=== PATIENT | male | born 1940 | race Caucasian/White ===

== ENCOUNTER 2018-02-02 10:00 | Emergency (ER) | payer OTHER, SELFPAY ==
[2018-02-02] VITALS (7 sets, daily range): BP systolic 95–116; BP diastolic 58–79; PULSE 52–67; RESP 12–20; TEMP 36.7; O2SAT 93–99; BMI 25.9
--- NOTE | 2018-02-02 10:19 | DI.RAD.S_ITS ---
PROCEDURE: XR CHEST 1V INDICATIONS: chest pain TECHNIQUE: One view of the chest was acquired. COMPARISON: [facility], , CHEST 1 VIEW, 09/13/2015, 14:41. FINDINGS: Surgical changes and devices: Multiple surgical clips are present over the mediastinum. Lungs and pleura: No pleural effusions or pneumothorax. Lungs are clear. Mediastinum: Mediastinal contours appear normal. Heart size is normal. Bones and chest wall: No suspicious bony lesions. Overlying soft tissues appear unremarkable. IMPRESSION: No acute cardiopulmonary findings. Dictated by: Renée Macario M.D. on 02/02/2018 at 11:02 Approved by: Renée Macario M.D. on 02/02/2018 at 11:03
[2018-02-02 10:36] LABS: Add Manual Diff / Slide Review NO; Basophils Percent Auto 0.9 % (0-2); Eosinophils Percent Auto 0.6 % (2-4); Hematocrit 47.6 % (41-53); Hemoglobin 16.3 g/dL (13.5-17.5); Lymphocytes Percent Auto 18.3 % (25-40); Mean Corpuscular HGB Conc 34.3 % (30-36); Mean Corpuscular Hemoglobin 29.3 PG (26-34); Mean Corpuscular Volume 85.3 fL (80-100); Monocytes Percent Auto 10.3 % (3-14); Neutrophils Absolute Auto 4600 /uL (3000-5900); Neutrophils Percent Auto 69.9 % (50-75); Platelet Count 202 X10^3/uL (150-400); Red Blood Cell Count 5.58 X10^6/uL (4.5-5.9); Red Cell Distribution Width 13.3 % (11.6-14.8); White Blood Cell Count 6.5 X10^3/uL (4.5-11.0)
--- NOTE | 2018-02-02 10:54 | PC.NURSE ---
lab at bedside to re-collect hemolized blood
[2018-02-02 11:10] LABS: INR 1.2 (0.9-1.3); Prothrombin Time 12.6 SECONDS (10.1-12.7)
[2018-02-02 11:13] LABS: PTT Partial Thromboplastin Tim 34 SECONDS (26.4-36.2)
[2018-02-02 11:18] LABS: Alanine Aminotransferase 47 IU/L (21-72); Albumin 4.4 g/dL (3.5-5.0); Albumin Globulin Ratio 1.5 (1.0-2.8); Alkaline Phosphatase 63 U/L (38-126); Aspartate Aminotransferase 32 IU/L (17-59); BUN Creatinine Ratio 26.7 (6-22); Bilirubin Total 0.6 mg/dL (0.2-1.3); Blood Urea Nitrogen 24 mg/dL (9-20); Carbon Dioxide 30 mmol/L (22-32); Chloride 101 mmol/L (98-107); Creatine Kinase 182 U/L (55-170); Estimated Glomerular Filt Rate > 60.0 mL/min (>60); Globulin 2.9 g/dL (1.7-4.1); Glucose 111 mg/dL (80-110); HEMOLYSIS < 15 (0-50); Lipase 66 U/L (23-300); Potassium 4.3 mmol/L (3.4-5.1); Sodium 141 mmol/L (137-145); Total Protein 7.3 g/dL (6.3-8.2)
[2018-02-02 11:33] LABS: CKMB % Relative Index 1.5 % (1.5-5.0); Creatine Kinase MB 2.78 ng/mL (<2.37)
[2018-02-02 11:38] LABS: Troponin I < 0.012 ng/mL (0.01-0.034)
--- NOTE | 2018-02-02 11:53 | ED_ITS ---
HPI - Chest Pain General Chief Complaint: Chest Pain Stated Complaint: CHEST PAIN/DIFFICULTY BREATHING Time Seen by Provider: 02/02/18 11:01 Source: patient and family Mode of arrival: ambulatory Limitations: no limitations History of Present Illness HPI narrative: Patient complains of bilateral chest pain since having 2 stents placed 3 weeks ago. Patient states this began the day after his angioplasty; he had both a chest x-ray and a postoperative echocardiogram while in the hospital to address this pain, and was kept in the hospital an extra day. Pain was not felt to be related to the patient's heart, and he was discharged. Patient has been having and the pain every day since; he states it is not affected by nitroglycerin which he does take. He saw his spreader operator, Dr. Moise, yesterday and spreader operator did not feel that the pain was cardiac in nature. Patient was instructed to follow up with his primary care physician to further address pain; however the primary care physician's office told him to come to the emergency department. MD complaint: chest pain Onset (ago): week(s) Duration: intermittent Onset: during rest Pain location: substernal Severity: mild Severity scale (1-10): 3 Quality: sharp Pain radiation: none Relieving factors: nothing Exacerbating factors: nothing Context: other (See above) Associated symptoms: other (No nausea, vomiting, diaphoresis, dyspnea, sense of impending doom, syncope, palpitations, fever, cough, or leg swelling.) Treatments prior to arrival chest pain: nitroglycerin (Patient states that this did not affect his pain.) Related Data Home Medications Medication Instructions Recorded Confirmed aspirin 1 tab PO QPM #0 12/24/15 02/07/18 rosuvastatin [Crestor] 40 mg PO QPM #30 tab 12/24/15 02/07/18 ezetimibe 10 mg PO QPM 02/02/18 02/07/18 furosemide 40 mg PO DAILY PRN 02/02/18 02/07/18 metoprolol succinate 25 mg PO BID 02/02/18 02/07/18 nitroglycerin [Nitrostat] 0.4 mg SUBLINGUAL Q5-15M PRN 02/02/18 02/07/18 potassium chloride 20 meq PO DAILY PRN 02/02/18 02/07/18 ticagrelor [Brilinta] 90 mg PO BID 02/02/18 02/07/18 Previous Rx's Medication Instructions Recorded hydroxyzine HCl 25 mg tablet 50 mg PO TID PRN #150 tab 02/07/18 Allergies Allergy/AdvReac Type Severity Reaction Status Date / Time amlodipine Allergy Intermediate Swelling Verified 02/07/18 09:23 of Lip/Tongue/Throat isosorbide Allergy Intermediate Swelling Verified 02/07/18 09:23 of Lip/Tongue/Throat ranolazine Allergy Intermediate Swelling Verified 02/07/18 09:23 of Lip/Tongue/Throat Review of Systems Review of Systems All systems reviewed & are unremarkable except as noted in HPI and below Constitutional Denies chills, Denies fever(s), Denies lethargy and Denies weakness Eyes Denies change in vision, Denies eye discharge, Denies irritation and Denies loss of vision ENT Ears, Nose, Mouth, and Throat: Denies change in voice, Denies neck pain and Denies sore throat Cardiovascular Reports chest pain, Denies irregular heart rhythm, Denies lightheadedness, Denies palpitations, Denies dyspnea, Denies dyspnea on exertion and Denies orthopnea Respiratory Denies cough, Denies dyspnea, Denies dyspnea on exertion and Denies wheezing Gastrointestinal Gastrointestinal: Denies abdominal pain, Denies change in bowel habits, Denies diarrhea, Denies nausea and Denies vomiting Genitourinary Denies hematuria, Denies flank pain, Denies urinary incontinence and Denies urinary urgency Musculoskeletal Denies neck pain Integumentary/Breasts Denies pruritus, Denies erythema, Denies rash and Denies wounds Neurologic Denies confusion, Denies loss of vision and Denies weakness Psychiatric Denies anxiety, Denies confusion, Denies depression, Denies homicidal ideation and Denies suicidal ideation Endocrine Denies palpitations Hematologic/Lymphatic Denies easy bruising Allergic/Immunologic Denies wheezing PFSH Medical History HTN (hypertension) (Acute) Coronary artery disease (Acute) Surgical History H/O coronary angioplasty (Acute) Family History Brother Age: 80 Lung disease Grandfather Heart disease Grandmother Heart disease Mother Heart disease Social History Smoking Status: Never smoker Exam Initial Vital Signs Initial Vital Signs: Vital Signs Pulse Rate 66 02/02/18 10:00 Respiratory Rate 17 02/02/18 10:00 Blood Pressure 116/78 02/02/18 10:00 Pulse Oximetry 95 02/02/18 10:00 Const General: cooperative and well developed Nutritional Appearance: well nourished Orientation: alert, awake, oriented x3 and not confused HENNE Head: normocephalic and atraumatic Ears: external ears normal Nose: external nose normal and No nasal discharge Face and sinus: face symmetric and No dry mucous membranes Mouth: oral mucosae normal and moist mucous membranes Teeth and gingiva: dentition normal Eyes General: appearance normal, both eyes and all related structures Eyelids: eyelids normal Conjunctivae: conjunctivae normal Sclera: sclerae normal Pupils: PERRL EOM: EOM intact bilaterally Neck Neck: normal visual inspection, trachea midline, No lymphadenopathy, No midline deformity and No JVD Lymphatic: No lymphedema Chest Chest: normal inspection of the chest Resp Effort & Inspection: normal respiratory effort, able to speak in complete sentences, no respiratory distress and no use of accessory muscles Auscultation: clear to auscultation bilaterally, no rales, no rhonchi and no wheezes Cardio Rate: regular rate Rhythm: regular rhythm Heart Sounds: no click, no gallops, no murmurs and no rubs Pulses: normal peripheral pulses GI Inspection: non-distended Palpation: soft, no hepatosplenomegaly, No guarding, No pulsatile mass and No tender Auscultation: normal bowel sounds Back/Spine/Pelvis Back: No CVA tenderness Cervical Spine: cervical ROM normal and No pain with cervical ROM Thoracic/Lumbar Spine: thoracic and lumbar spine normal to inspection Skin General: no rashes or lesions noted, No jaundice and No petechiae Neuro General: alert, oriented x3, gait normal and no focal motor deficits Speech: speech normal Extrem General: full ROM, no clubbing, cyanosis or edema, no pedal edema and no calf tenderness Psych Appearance: well kempt Mental Status: mental status grossly normal Attitude: cooperative Thought Content: normal and suicidality Judgment: judgment good Course Course Narrative: Patient was well appearing in the emergency department, and had been having this pain consistently since his angioplasty weeks ago. Additionally, he had on undergone extensive testing in the hospital, as well as followed up with his spreader operator and no further cardiac issues had turned up. I did discuss this at length with the patient and his but the patient's concern over his chest pain persisted. EKG and lab studies were unremarkable. I discussed with the patient and his that there is no evidence of an emergent cause of his chest pain. He needs to follow up with his primary care physician and spreader operator for further concerns at this point. We have discussed home management of the symptoms, as well as the usual indications for return. Orders Ordered: ED Orders 02/02/18 10:19 XR chest 1V Stat EKG-12 Lead Stat 02/02/18 10:23 Complete Blood Count AUTO DIFF Stat 02/02/18 10:55 Comprehensive Metabolic Panel Stat Lipase Stat Partial Thromboplastin Time Stat Prothrombin Time INR Stat Troponin & CK Cardiac Panel Stat Vital Signs - 8 hr 02/02/18 10:00 02/02/18 10:26 02/02/18 10:30 Temperature 98.1 F Pulse Rate 66 62 64 Respiratory Rate 17 14 18 Blood Pressure 116/79 Blood Pressure [Left Arm] 116/78 95/66 Blood Pressure [Right Arm] Pulse Oximetry 95 98 93 02/02/18 11:00 02/02/18 11:30 02/02/18 12:30 Temperature Pulse Rate 64 61 52 L Respiratory Rate 18 20 12 Blood Pressure Blood Pressure [Left Arm] 98/66 98/58 L Blood Pressure [Right Arm] 98/58 L 104/68 Pulse Oximetry 93 96 94 02/02/18 13:53 Temperature Pulse Rate 55 L Respiratory Rate 14 Blood Pressure Blood Pressure [Left Arm] Blood Pressure [Right Arm] 96/61 Pulse Oximetry 99 MDM - Chest Pain Medical Records Data Attestation: I reviewed the patient's medical records. Lab Data Attestation: I reviewed the patient's lab results. Result diagrams: 02/02/18 10:23 02/02/18 10:55 Lab Results 02/02/18 02/02/18 02/02/18 Range/Units 10:23 10:55 10:55 WBC 6.5 (4.5-11.0) X10^3/uL RBC 5.58 (4.5-5.9) X10^6/uL Hgb 16.3 (13.5-17.5) g/dL Hct 47.6 (41-53) % MCV 85.3 (80-100) fL MCH 29.3 (26-34) PG MCHC 34.3 (30-36) % RDW 13.3 (11.6-14.8) % Plt Count 202 (150-400) X10^3/uL Neut % (Auto) 69.9 (50-75) % Lymph % (Auto) 18.3 L (25-40) % [place] % (Auto) 10.3 (3-14) % Eos % (Auto) 0.6 L (2-4) % Baso % (Auto) 0.9 (0-2) % Neut # (Auto) 4600 (5767-8430) /uL PT 12.6 (10.1-12.7) SECONDS INR 1.2 (0.9-1.3) APTT 34 (26.4-36.2) SECONDS Sodium 141 (137-145) mmol/L Potassium 4.3 (3.4-5.1) mmol/L Chloride 101 (98-107) mmol/L Carbon Dioxide 30 (22-32) mmol/L BUN 24 H (9-20) mg/dL Creatinine 0.90 (0.66-1.25) mg/dL Estimated GFR > 60.0 (>60) mL/min BUN/Creatinine Ratio 26.7 H (6-22) Glucose 111 H (80-110) mg/dL Calcium 9.0 (8.4-10.2) mg/dL Total Bilirubin 0.6 (0.2-1.3) mg/dL AST 32 (17-59) IU/L ALT 47 (21-72) IU/L Alkaline Phosphatase 63 (38-126) U/L Total Creatine Kinase 182 H (55-170) U/L CK-MB (CK-2) 2.78 H (<2.37) ng/mL CK-MB (CK-2) Rel Index 1.5 (1.5-5.0) % Troponin I < 0.012 (0.01-0.034) ng/mL Total Protein 7.3 (6.3-8.2) g/dL Albumin 4.4 (3.5-5.0) g/dL Globulin 2.9 (1.7-4.1) g/dL Albumin/Globulin Ratio 1.5 (1.0-2.8) Lipase 66 (23-300) U/L Imaging Data Chest x-ray: Attestation: I personally reviewed and interpreted this imaging study as follows: My impression: Negative Radiologist's impression: PROCEDURE: XR CHEST 1V INDICATIONS: chest pain TECHNIQUE: One view of the chest was acquired. COMPARISON: [facility], CHEST 1 VIEW, 09/13/2015, 14:41. FINDINGS: Surgical changes and devices: Multiple surgical clips are present over the mediastinum. Lungs and pleura: No pleural effusions or pneumothorax. Lungs are clear. Mediastinum: Mediastinal contours appear normal. Heart size is normal. Bones and chest wall: No suspicious bony lesions. Overlying soft tissues appear unremarkable. IMPRESSION: No acute cardiopulmonary findings. Dictated by: Renée Macario M.D. on 02/02/2018 at 11:02 Approved by: Renée Macario M.D. on 02/02/2018 at 11:03 Discharge Plan Departure Patient Disposition: Home Clinical Impression: Chest pain Discharge Date/Time: 02/02/18 13:55 Interventions: ED Discharge Assessment Last Done: 02/02/18 13:54 Instructions: DI for Chest Pain Activity Restrictions/Additional Instructions: Your labs, chest x-ray, and EKG look good. There is no evidence of an emergent cause of her chest pain. Please continue to follow up with her primary care physician, as well as your spreader operator, for further evaluation of your pain. Prescriptions: No Action hydroxyzine HCl 25 mg tablet 50 mg PO TID PRN (Reason: anxiety) Qty: 150 RF: 0 aspirin 81 MG tablet,delayed release (DR/EC) 1 tab PO QPM Qty: 0 RF: 0 rosuvastatin [Crestor] 40 MG tablet 40 mg PO QPM Qty: 30 RF: 0 furosemide 40 mg Tablet 40 mg PO DAILY PRN (Reason: FLUID RETENTION) RF: 0 potassium chloride 10 mEq Tablet Extended Release 20 meq PO DAILY PRN (Reason: ONLY TAKE WITH FUROSEMIDE) RF: 0 nitroglycerin [Nitrostat] 0.4 mg Tablet, Sublingual 0.4 mg SUBLINGUAL Q5-15M PRN (Reason: Chest Pain) RF: 0 metoprolol succinate 25 mg Tablet Extended Release 24 Hr 25 mg PO BID RF: 0 ezetimibe 10 mg Tablet 10 mg PO QPM RF: 0 ticagrelor [Brilinta] 90 mg tablet 90 mg PO BID RF: 0 Referrals: Jonah Rasmussen MD [Primary Care Provider] - ( Call for the next available appointment.)
--- NOTE | 2018-02-02 13:17 | PC.NURSE ---
see note for initial assessment
== END 2018-02-02 13:55 | disposition home or self-care (01) ==
PROVIDERS: Emergency Provider Emergency Medicine; Family Provider Family Medicine; PCP Family Medicine
DX: R07.89 Other chest pain (principal)
CPT/HCPCS: 36415; 36591; 71045; 80053; 82550; 82553; 83690; 84484; 85025; 85610; 85730; 93005; 99283; 99285

== ENCOUNTER → 2018-03-02 07:29 | Outpatient (CLI) | payer OTHER, SELFPAY ==
[2018-03-02 09:40] LABS: Alanine Aminotransferase 76 IU/L (21-72); Albumin 4.5 g/dL (3.5-5.0); Albumin Globulin Ratio 1.7 (1.0-2.8); Alkaline Phosphatase 60 U/L (38-126); Aspartate Aminotransferase 48 IU/L (17-59); BUN Creatinine Ratio 21.1 (6-22); Bilirubin Total 0.5 mg/dL (0.2-1.3); Blood Urea Nitrogen 19 mg/dL (9-20); Calcium 9.4 mg/dL (8.4-10.2); Carbon Dioxide 29 mmol/L (22-32); Chloride 103 mmol/L (98-107); Estimated Glomerular Filt Rate > 60.0 mL/min (>60); Globulin 2.6 g/dL (1.7-4.1); Glucose 102 mg/dL (80-110); HEMOLYSIS < 15 (0-50); Potassium 4.7 mmol/L (3.4-5.1); Sodium 146 mmol/L (137-145); Total Protein 7.1 g/dL (6.3-8.2)
[2018-03-04 13:32] LABS: Lipoprofile NMR SEE SEPERATE REPORT
== END ==
PROVIDERS: Family Provider Student in an Organized Health Care Education/Training Program; PCP Student in an Organized Health Care Education/Training Program; Visit Provider Specialist
DX: E78.2 Mixed hyperlipidemia (principal)
CPT/HCPCS: 36415; 80053; 83704

== ENCOUNTER 2018-05-19 08:30 | Outpatient (RCR) | payer OTHER, SELFPAY | END 2018-05-19 10:00 | LOC: CAR 08:30 | PROVIDERS: Family Provider Student in an Organized Health Care Education/Training Program; PCP Student in an Organized Health Care Education/Training Program; Visit Provider Nurse Practitioner Gerontology | DX: Z95.5 Presence of coronary angioplasty implant and graft (principal); I25.110 Atherosclerotic heart disease of native coronary artery with unstable angina pectoris | CPT/HCPCS: 93798 ==

== ENCOUNTER 2018-05-26 13:30 | Emergency (ER) | payer OTHER, SELFPAY ==
[2018-05-26 13:35] VITALS: BP 119/64; PULSE 76; RESP 18; TEMP 36.7; O2SAT 95
--- NOTE | 2018-05-26 13:43 | ED.CHESTPAIN ---
HPI - Chest Pain General Chief Complaint: Chest Pain Stated Complaint: throat pain extending down abdomen Time Seen by Provider: 05/26/18 13:42 Source: patient Mode of arrival: ambulatory Limitations: no limitations History of Present Illness HPI narrative: Patient is a 78-year-old male here for evaluation of chest pain. He states that at the end of last month he had a cardiac catheterization with stents placed. He does have known coronary artery disease. He is on medications. He has been taking his medications. He states that since then he has had occasional pain. He states that it is in the morning. He thinks that it radiates from his throat down to his abdomen. Starts after he wakes up. Resolves by mid day and then is gone the rest of the day. He has taken nitro in the past for this which has improved some of his symptoms. He was started on pantoprazole 3 days ago by his primary doctor. He came into the emergency department today looking to have his esophagus evaluated with radiologic studies. He has a nephew who is a radiologist who recommended that this get done. Related Data Home Medications Medication Instructions Recorded Confirmed aspirin 1 tab PO QPM #0 12/24/15 05/26/18 rosuvastatin [Crestor] 40 mg PO QPM #30 tab 12/24/15 05/26/18 ezetimibe 10 mg PO QPM 02/02/18 05/26/18 nitroglycerin [Nitrostat] 0.4 mg SUBLINGUAL Q5-15M PRN 02/02/18 05/26/18 clopidogrel 75 mg PO DAILY 05/26/18 05/26/18 hydrochlorothiazide 12.5 mg PO DAILY 05/26/18 05/26/18 isosorbide dinitrate 10 mg PO TID 05/26/18 05/26/18 metoprolol succinate 25 mg PO QPM 05/26/18 05/26/18 Previous Rx's Medication Instructions Recorded pantoprazole 40 mg tablet,delayed 40 mg PO DAILY #14 tab 05/24/18 release Allergies Allergy/AdvReac Type Severity Reaction Status Date / Time amlodipine Allergy Intermediate Swelling Verified 02/07/18 09:23 of Lip/Tongue/Throat isosorbide Allergy Intermediate Swelling Verified 02/07/18 09:23 of Lip/Tongue/Throat ranolazine Allergy Intermediate Swelling Verified 02/07/18 09:23 of Lip/Tongue/Throat Review of Systems Constitutional Denies fever(s) and Denies headache(s) ENT Ears, Nose, Mouth, and Throat: Denies headache(s) Cardiovascular Reports chest pain and Denies dyspnea Respiratory Denies cough and Denies dyspnea Gastrointestinal Gastrointestinal: Denies abdominal pain, Denies nausea and Denies vomiting Genitourinary Denies dysuria Musculoskeletal Denies myalgias and Denies arthralgias Integumentary/Breasts Denies lesions and Denies rash Neurologic Denies confusion and Denies headache(s) Psychiatric Denies confusion Hematologic/Lymphatic Comments: Not on anticoagulation Allergic/Immunologic Denies urticaria [facility] Social History Smoking Status: Never smoker Exam Initial Vital Signs Initial Vital Signs: Vital Signs Temperature 98.1 F 05/26/18 13:35 Pulse Rate 76 05/26/18 13:35 Respiratory Rate 18 05/26/18 13:35 Blood Pressure 119/64 05/26/18 13:35 Pulse Oximetry 95 05/26/18 13:35 Const General: cooperative, healthy appearing, comfortable, well developed, well groomed and No acute distress Orientation: alert, awake and oriented x3 HENMT Head: normal to inspection and normocephalic Chest Chest: normal inspection of the chest Resp Effort & Inspection: normal respiratory effort Auscultation: clear to auscultation bilaterally Cardio Rate: regular rate Rhythm: regular rhythm Pulses: radial pulses present GI Inspection: non-distended Palpation: soft, No firm and No tender Skin Lesions: no lesions Rashes: no rashes Neuro General: alert, awake and oriented x3 Extrem General: normal to inspection and No edema Psych Appearance: grossly normal and well kempt Course Orders Ordered: ED Orders 05/26/18 13:44 XR chest 1V Stat EKG-12 Lead Stat Vital Signs - 8 hr 05/26/18 13:35 05/26/18 14:23 05/26/18 14:24 Temperature 98.1 F Pulse Rate 76 65 Respiratory Rate 18 20 Blood Pressure 119/64 Blood Pressure [Left Arm] 103/53 L Pulse Oximetry 95 93 05/26/18 15:00 05/26/18 16:37 05/26/18 17:40 Temperature Pulse Rate 54 L 79 61 Respiratory Rate 18 18 18 Blood Pressure 130/65 Blood Pressure [Left Arm] 98/55 L 108/66 Pulse Oximetry 92 93 99 MDM - Chest Pain Medical Records Data Attestation: I reviewed the patient's medical records. Lab Data Attestation: I reviewed the patient's lab results. Result diagrams: 05/26/18 01:42 05/26/18 01:42 Lab Results 05/26/18 05/26/18 05/26/18 Range/Units 01:42 01:42 01:42 WBC 5.4 (4.5-11.0) X10^3/uL RBC 5.09 (4.5-5.9) X10^6/uL Hgb 14.8 (13.5-17.5) g/dL Hct 44.4 (41-53) % MCV 87.2 (80-100) fL MCH 29.0 (26-34) PG MCHC 33.3 (30-36) % RDW 13.7 (11.6-14.8) % Plt Count 153 (150-400) X10^3/uL Neut % (Auto) 64.2 (50-75) % Lymph % (Auto) 24.5 L (25-40) % [place] % (Auto) 9.7 (3-14) % Eos % (Auto) 0.7 L (2-4) % Baso % (Auto) 0.9 (0-2) % Neut # (Auto) 3500 (6415-9670) /uL Lymph # (Auto) 1300 (4341-5902) /uL [place] # (Auto) 500 (0-900) /uL Eos # (Auto) 0 (0-450) /uL Baso # (Auto) 0 (0-100) /uL PT 12.5 (10.1-12.7) SECONDS INR 1.1 (0.9-1.3) APTT 31 D (26.4-36.2) SECONDS Sodium 137 (137-145) mmol/L Potassium 3.9 (3.4-5.1) mmol/L Chloride 102 (98-107) mmol/L Carbon Dioxide 26 (22-32) mmol/L BUN 19 (9-20) mg/dL Creatinine 0.90 (0.66-1.25) mg/dL Estimated GFR > 60.0 (>60) mL/min BUN/Creatinine Ratio 21.1 (6-22) Glucose 113 H (80-110) mg/dL Calcium 9.0 (8.4-10.2) mg/dL Total Bilirubin 0.3 (0.2-1.3) mg/dL AST 29 (17-59) IU/L ALT 34 (21-72) IU/L Alkaline Phosphatase 55 (38-126) U/L Troponin I < 0.012 (0.01-0.034) ng/mL B-Natriuretic Peptide < 100 (<100) Total Protein 7.0 (6.3-8.2) g/dL Albumin 4.2 (3.5-5.0) g/dL Globulin 2.8 (1.7-4.1) g/dL Albumin/Globulin Ratio 1.5 (1.0-2.8) Lipase 74 (23-300) U/L Imaging Data Chest x-ray: Radiologist's impression: [address] [address] XRay Report Signed Patient: Paolo Bazzi WMR#: [id number] : 1Acct:[id number] Age/Sex: 78 / MDate of Service: 05/26/18 Loc: ED Accession Number: [id number] Procedure: XR chest 1V Ordering Provider: Jaime Ba D.O. PROCEDURE: XR CHEST 1V INDICATIONS: chest pain TECHNIQUE: One view of the chest was acquired. COMPARISON: [facility], , XR CHEST 1V, 02/02/2018, 10:42. [facility], , CHEST 1 VIEW, 09/13/2015, 14:41. FINDINGS: Surgical changes and devices: A sternotomy wires, probable prior CABG.. Lungs and pleura: No pleural effusions or pneumothorax. Lungs are clear. Mediastinum: Mediastinal contours appear normal. Heart size is normal. Bones and chest wall: No suspicious bony lesions. Overlying soft tissues appear unremarkable. IMPRESSION: Source of chest pain is not seen. Suspect prior CABG. Dictated by: Kartik Cabrales M.D. on 05/26/2018 at 14:14 Approved by: Kartik Cabrales M.D. on 05/26/2018 at 14:15 ECG Data Attestation: I personally reviewed and interpreted this ECG as follows: Prior ECG tracings: not available for review Interpretation: Sinus bradycardia Ventricular rate of 54 Normal axis Normal QRS Normal QTC No ST T wave changes MDM Narrative Medical decision making narrative: Patient's labs chest x-ray an EKG here in the emergency department are unremarkable. I informed the patient and his that we would be unable to get any esophageal studies performed out of the emergency department. Stated that this needed to come from either the primary care doctor or a GI provider. I did discuss the patient's case for all of her who was on-call for the patient's cardiology group of [facility]. Dr. Wood was able to review the patient's catheterization pictures from the end of last month. He does state that there were potentially some lesions that could be causing the patient angina however given his story that he presented to the emergency department and his unremarkable EKG and unremarkable labs and the fact that his symptoms were occurring in the morning that he would not emergently re- catheterization the individual. He stated that staying on the PPI is warranted and also taking the nitro as needed. I discussed the case with Dr. Cuenca who is the patient's primary care doctor however has yet to see the patient in the clinic. I do feel like the patient would benefit from a GI referral however I do not feel like this is an emergent issue. Informed the patient he should stay on the pantoprazole. Also informed that he could take the nitroglycerin as needed. He was given return precautions. He expressed understanding and agreement with plan. Discharge Plan Departure Patient Disposition: Home Clinical Impression: Chest pain Discharge Date/Time: 05/26/18 17:39 Interventions: ED Discharge Assessment Last Done: 05/26/18 17:40 Instructions: DI for Chest Pain Activity Restrictions/Additional Instructions: I recommend you continue with the pantoprazole and also the nitro like we discussed. When you return home keep your appointment that you have scheduled with your primary doctor. If your symptoms worsen or change return to the emergency department for re-evaluation Prescriptions: No Action aspirin 81 MG tablet,delayed release (DR/EC) 1 tab PO QPM Qty: 0 RF: 0 rosuvastatin [Crestor] 40 MG tablet 40 mg PO QPM Qty: 30 RF: 0 pantoprazole 40 mg tablet,delayed release (DR/EC) 40 mg PO DAILY Qty: 14 RF: 0 nitroglycerin [Nitrostat] 0.4 mg Tablet, Sublingual 0.4 mg SUBLINGUAL Q5-15M PRN (Reason: Chest Pain) RF: 0 ezetimibe 10 mg Tablet 10 mg PO QPM RF: 0 isosorbide dinitrate 10 mg Tablet 10 mg PO TID RF: 0 clopidogrel 75 mg Tablet 75 mg PO DAILY RF: 0 hydrochlorothiazide 12.5 mg Capsule 12.5 mg PO DAILY RF: 0 metoprolol succinate 25 mg Tablet Extended Release 24 Hr 25 mg PO QPM RF: 0
[2018-05-26 14:23] VITALS: PULSE 65; RESP 20; O2SAT 93
[2018-05-26 14:24] VITALS: BP 103/53
[2018-05-26 14:33] LABS: Add Manual Diff / Slide Review NO; Basophils Absolute Auto 0 /uL (0-100); Basophils Percent Auto 0.9 % (0-2); Eosinophils Absolute Auto 0 /uL (0-450); Eosinophils Percent Auto 0.7 % (2-4); Hematocrit 44.4 % (41-53); Hemoglobin 14.8 g/dL (13.5-17.5); Lymphocytes Absolute Auto 1300 /uL (1100-4500); Lymphocytes Percent Auto 24.5 % (25-40); Mean Corpuscular HGB Conc 33.3 % (30-36); Mean Corpuscular Volume 87.2 fL (80-100); Monocytes Absolute Auto 500 /uL (0-900); Monocytes Percent Auto 9.7 % (3-14); Neutrophils Absolute Auto 3500 /uL (1500-7000); Neutrophils Percent Auto 64.2 % (50-75); Platelet Count 153 X10^3/uL (150-400); Red Blood Cell Count 5.09 X10^6/uL (4.5-5.9); Red Cell Distribution Width 13.7 % (11.6-14.8); White Blood Cell Count 5.4 X10^3/uL (4.5-11.0)
[2018-05-26 14:36] LABS: INR 1.1 (0.9-1.3); Prothrombin Time 12.5 SECONDS (10.1-12.7)
[2018-05-26 14:39] LABS: PTT Partial Thromboplastin Tim 31 SECONDS (26.4-36.2)
[2018-05-26 14:40] LABS: Alanine Aminotransferase 34 IU/L (21-72); Albumin 4.2 g/dL (3.5-5.0); Albumin Globulin Ratio 1.5 (1.0-2.8); Alkaline Phosphatase 55 U/L (38-126); Aspartate Aminotransferase 29 IU/L (17-59); BUN Creatinine Ratio 21.1 (6-22); Bilirubin Total 0.3 mg/dL (0.2-1.3); Blood Urea Nitrogen 19 mg/dL (9-20); Carbon Dioxide 26 mmol/L (22-32); Chloride 102 mmol/L (98-107); Estimated Glomerular Filt Rate > 60.0 mL/min (>60); Globulin 2.8 g/dL (1.7-4.1); Glucose 113 mg/dL (80-110); HEMOLYSIS < 15 (0-50); Lipase 74 U/L (23-300); Potassium 3.9 mmol/L (3.4-5.1); Sodium 137 mmol/L (137-145)
[2018-05-26 14:52] LABS: B Type Natriuretic Peptide < 100 (<100)
[2018-05-26 14:53] LABS: Troponin I < 0.012 ng/mL (0.01-0.034)
[2018-05-26 15:00] VITALS: BP 98/55; PULSE 54; RESP 18; O2SAT 92
[2018-05-26 16:37] VITALS: BP 108/66; PULSE 79; RESP 18; O2SAT 93
[2018-05-26 17:40] VITALS: BP 130/65; PULSE 61; RESP 18; O2SAT 99
== END 2018-05-26 17:39 | disposition home or self-care (01) ==
PROVIDERS: Emergency Provider Emergency Medicine; Family Provider Student in an Organized Health Care Education/Training Program; PCP Student in an Organized Health Care Education/Training Program
DX: R07.9 Chest pain, unspecified (principal)
CPT/HCPCS: 36591; 71045; 80053; 83690; 83880; 84484; 85025; 85610; 85730; 93005; 93010; 99283; 99285

== ENCOUNTER → 2018-08-23 10:42 | Outpatient (CLI) | payer OTHER, SELFPAY | PROVIDERS: Family Provider Student in an Organized Health Care Education/Training Program; PCP Student in an Organized Health Care Education/Training Program; Visit Provider Physician Assistant | DX: J02.9 Acute pharyngitis, unspecified (principal) | CPT/HCPCS: 87070 ==

== ENCOUNTER → 2018-10-21 16:58 | Outpatient (CLI) | payer OTHER, SELFPAY ==
--- NOTE | 2018-11-11 08:54 | PM.PFT.1 ---
Pulmonary Function Test Referral & Results Date Patient Seen: 10/21/18 Requesting provider: Andres Vargas Indication: Shortness of breath Results: The spirometry demonstrates an FVC of 3.23 L which is 81% of predicted. The FEV1 was measured at 2.31 L which is 81% of predicted. The FEV1/FVC ratio was 72 which is 99% of predicted. Following the administration of bronchodilator there was to 29% improvement in FEF 25-75%. Lung volumes show an SVC of 3.05 L which is 70% of predicted. The diffusing capacity was measured at 22.65 which is 73% of predicted. No hemoglobin value was provided, so no correction for potential anemia could be made, if appropriate. The maximum voluntary ventilation was normal Interpretation: This study demonstrates mild obstructive lung disease based on reduction in FEV1. There is some evidence of benefit following bronchodilator administration particularly small airway flow based on improvement in FEF 25-75% as above There is more significant reduction in lung volumes suggesting more significant restrictive lung disease There is also [id number] reduction in diffusing capacity suggesting disease of the capillary alveolar level Altogether, given more significant restrictive pattern than obstructive lung disease pattern and reduction in diffusing capacity this is consistent with an interstitial process Clinical correlation suggested
== END ==
PROVIDERS: Family Provider Student in an Organized Health Care Education/Training Program; PCP Student in an Organized Health Care Education/Training Program; Visit Provider Student in an Organized Health Care Education/Training Program
DX: R06.02 Shortness of breath (principal)
CPT/HCPCS: 94060; 94726; 94729

== ENCOUNTER → 2018-11-16 16:06 | Outpatient (CLI) | payer OTHER, SELFPAY ==
--- NOTE | 2018-11-16 16:07 | DI.CT.S_ITS ---
PROCEDURE: CT CHEST HIGH RESOLUTION INDICATIONS: Abnormal PFT, suspect interstitial disease TECHNIQUE: Noncontrast 1.0 and 5.0 mm thick contiguous axial sections from the pulmonary apex to the posterior costophrenic angles, with 7 mm thick coronal and sagittal MIP reformats. 1 mm thick dynamic expiratory images acquired through the upper, mid, and lower lungs. 1.0 mm thick axial sections acquired from the omari to the posterior costophrenic angles in the prone end-inspiration position. For radiation dose reduction, the following was used: automated exposure control, adjustment of mA and/or kV according to patient size. COMPARISON: None. FINDINGS: Image quality: Excellent. Lungs: The there is no air space opacity. No discrete pulmonary nodule or mass is seen. Scarring/atelectasis in anterior and lateral periphery of bilateral mid to lower lung russell are seen. Bibasilar dependent atelectasis/scarring is also noted. Central and peripheral airway is patent and are normal in caliber. Pleura: No pleural effusions or pneumothorax. Mediastinum: Heart size is normal. No pericardial effusion. Atherosclerotic calcifications throughout coronary vessels and thoracic aorta are seen. Thoracic aorta and central pulmonary arteries are normal in size. Esophagus is normal in caliber. There is a small hiatal hernia. Bones and chest wall: No suspicious bony lesions. No vertebral body compression fractures. Abdomen: Visualized upper abdominal solid organs and bowel loops appear normal. IMPRESSION: 1. Bilateral lower lung field scarring/atelectasis. No focal infiltrate, pleural effusion or pneumothorax. No evidence of interstitial lung frontal disease. 2. No mediastinal or hilar lymphadenopathy. Coronary artery atherosclerotic calcifications. No thoracic aortic aneurysm. 3. Small hiatal hernia. Dictated by: Emerson Sheppard M.D. on 11/16/2018 at 17:08 Approved by: Emerson Sheppard M.D. on 11/16/2018 at 17:13
== END ==
PROVIDERS: Family Provider Student in an Organized Health Care Education/Training Program; PCP Student in an Organized Health Care Education/Training Program; Visit Provider Student in an Organized Health Care Education/Training Program
DX: J84.9 Interstitial pulmonary disease, unspecified (principal); I25.10 Atherosclerotic heart disease of native coronary artery without angina pectoris; K44.9 Diaphragmatic hernia without obstruction or gangrene
CPT/HCPCS: 71250

== ENCOUNTER → 2019-10-23 10:02 | Outpatient (CLI) | payer MEDICARE, SELFPAY ==
[2019-10-24 08:52] LABS: COVID19 Sendout Not Detected (Not Detect)
== END ==
PROVIDERS: Family Provider Student in an Organized Health Care Education/Training Program; PCP Student in an Organized Health Care Education/Training Program; Visit Provider Nurse Practitioner
DX: Z01.812 Encounter for preprocedural laboratory examination (principal)
CPT/HCPCS: 87635

== ENCOUNTER → 2020-01-06 13:29 | Outpatient (CLI) | payer MEDICARE, SELFPAY ==
[2020-01-09 12:02] LABS: COVID19 Sendout Not Detected (Not Detect)
== END ==
PROVIDERS: Family Provider Student in an Organized Health Care Education/Training Program; PCP Student in an Organized Health Care Education/Training Program; Visit Provider Physician Assistant
DX: Z11.59 Encounter for screening for other viral diseases (principal)
CPT/HCPCS: 87635

== ENCOUNTER 2020-01-09 08:57 | Day surgery (SDC) | payer MEDICARE, SELFPAY ==
[2020-01-09 09:31] VITALS: BP 130/76; PULSE 53; RESP 16; TEMP 36.6; O2SAT 95; BMI 25.2
[2020-01-09] MEDS: CATARACT EYE COMPOUND (10 DROPS/SYRINGE) 3 DROPS EYE-OP (09:57)
[2020-01-09] MEDS: PROPARACAINE 0.5% OPHTH SOL 2 DROPS EYE-OP (09:57)
[2020-01-09 10:00] LABS: COVID19 -Nasal RAPID Negative (Negative)
--- NOTE | 2020-01-09 11:05 | PM.PREOP ---
Pre-operative Note Interval Note History & Physical reviewed/Exam performed by Physician: Yes Changes to H&P: No
--- NOTE | 2020-01-09 11:06 | PM.OP.1 ---
Operative Date/Time/Diagnoses Pre-op diagnosis: Nuclear cataract right eye Procedure & Clinicians Procedure: Cataract Surgery Same procedure as scheduled: Yes Surgeon: Francis Gupta Anesthesia Type: MAC +/- and Sedation Operative Notes Procedure in detail: Patient brought to the operating suite. Tetracaine drops placed in the right eye. Patient was prepped and draped in sterile manner. Wire lid speculum was placed in the eye. Betadine drops were placed on the eye. This was irrigated. Lidocaine jelly was placed on the eye. A paracentesis port was created with a side-port blade. 0.1 mL 1% preservative free lidocaine was injected into the anterior chamber. The anterior chamber was deepened with viscoelastic. 2.6 mm keratome was used to create a temporal clear corneal incision. Cystotome and Utrata forceps were used to create continuous tear capsulorrhexis. Balanced salt solution was used to hydro dissect the nucleus. The phacoemulsification handpiece was inserted and the nucleus was removed using the stop and chop technique. The irrigation aspiration handpiece was inserted and the remaining cortex was removed. Anterior chamber was deepened with viscoelastic. An Marcelo ZCB00 intraocular lens with a power of 22.0 was injected into the capsular bag. Irrigation aspiration handpiece was inserted and the remaining viscoelastic was removed. Incision was hydrated with balanced salt solution and found to be leak free with pressure with Weck-Amena sponges. 0.1 mL Vigamox injected anterior chamber. 0.3 mL Kenalog 10 mg was injected subconjunctivally. Lid speculum was removed. The patient left the operating room in excellent condition. Complications: none Post-operative Condition: stable Disposition: same day surgery
[2020-01-09] MEDS: CHONDROIDTIN/SOD HYALURONATE 1.05 ML SYRINGE INTRAOCULA (11:14)
[2020-01-09] MEDS: LIDOCAINE JELLY 2% 5 ML 1 APPLIC TOP (11:14)
[2020-01-09] MEDS: PHENYLEPHRINE/LIDOCAINE VIAL (OR) 0.2 ML EYE-OP (11:15)
[2020-01-09] MEDS: MOXIFLOXACIN INJ 5 MG/ML VIAL EYE-OP (11:15)
[2020-01-09] MEDS: BALANCED SALT IRRIG SOLN NO.2 500 ML, EPINEPHrine 1 MG IRR (11:15)
[2020-01-09] MEDS: TRIAMCINOLONE 50 MG/5 ML VIAL INJ (11:16)
[2020-01-09] MEDS: TETRACAINE 0.5% OPHTH DROPS 4 ML 2 DROPS EYE-OP (11:16)
== END 2020-01-09 11:35 | disposition home or self-care (01) ==
PROVIDERS: Family Provider Student in an Organized Health Care Education/Training Program; PCP Student in an Organized Health Care Education/Training Program; Referring Provider Ophthalmology; Visit Provider Ophthalmology
PROC: (CPT 66984; principal; 2020-01-09 10:45)
DX: H25.11 Age-related nuclear cataract, right eye (principal); Z11.59 Encounter for screening for other viral diseases; F41.9 Anxiety disorder, unspecified; I51.9 Heart disease, unspecified
CPT/HCPCS: 66984; 87635; J0171; J2250; J3301

== ENCOUNTER → 2020-01-20 08:11 | Outpatient (CLI) | payer MEDICARE, SELFPAY ==
[2020-01-21 15:48] LABS: COVID19 Sendout Not Detected (Not Detect)
== END ==
PROVIDERS: Family Provider Student in an Organized Health Care Education/Training Program; PCP Student in an Organized Health Care Education/Training Program; Visit Provider Physician Assistant
DX: Z11.59 Encounter for screening for other viral diseases (principal)
CPT/HCPCS: 87635

== ENCOUNTER 2020-01-23 08:01 | Day surgery (SDC) | payer MEDICARE, SELFPAY ==
[2020-01-23] MEDS: PROPARACAINE 0.5% OPHTH SOL 2 DROPS EYE-OP (08:45)
[2020-01-23 08:53] VITALS: BP 138/68; PULSE 50; RESP 16; TEMP 36.1; O2SAT 97; BMI 25.2
[2020-01-23] MEDS: CATARACT EYE COMPOUND (10 DROPS/SYRINGE) 3 DROPS EYE-OP (09:05)
--- NOTE | 2020-01-23 09:35 | P.OP_ITS ---
Operative Date/Time/Diagnoses Pre-op diagnosis: Nuclear Cataract Left eye Post-op diagnosis: same Procedure & Clinicians Same procedure as scheduled: Yes Surgeon: Francis Gupta Anesthesia Type: MAC +/- and Sedation Operative Notes Procedure in detail: Patient brought to the operating suite. Tetracaine drops placed in the left eye. Patient was prepped and draped in sterile manner. Wire lid speculum was placed in the eye. Betadine drops were placed on the eye. This was irrigated. Lidocaine jelly was placed on the eye. A paracentesis port was created with a side-port blade. 0.1 mL 1% preservative free lidocaine was injected into the anterior chamber. The anterior chamber was deepened with viscoelastic. 2.6 mm keratome was used to create a temporal clear corneal incision. Cystotome and Utrata forceps were used to create continuous tear capsulorrhexis. Balanced salt solution was used to hydro dissect the nucleus. The phacoemulsification handpiece was inserted and the nucleus was removed using the stop and chop technique. The irrigation aspiration handpiece was inserted and the remaining cortex was removed. Anterior chamber was deepened with viscoe lastic. An Marcelo ZCB00 intraocular lens with a power of 22.5 was injected into the capsular bag. Irrigation aspiration handpiece was inserted and the remaining viscoelastic was removed. Incision was hydrated with balanced salt solution and found to be leak free with pressure with Weck-Amena sponges. 0.1 mL Vigamox injected anterior chamber. 0.3 mL Kenalog 10 mg was injected subconjunctivally. Lid speculum was removed. The patient left the operating room in excellent condition. Complications: none Post-operative Condition: stable Disposition: same day surgery
--- NOTE | 2020-01-23 09:35 | PM.PREOP ---
Pre-operative Note Interval Note History & Physical reviewed/Exam performed by Physician: Yes Changes to H&P: No
[2020-01-23] MEDS: LIDOCAINE JELLY 2% 5 ML 1 APPLIC TOP (09:50)
[2020-01-23] MEDS: CHONDROIDTIN/SOD HYALURONATE 1.05 ML SYRINGE INTRAOCULA (09:50)
[2020-01-23] MEDS: PHENYLEPHRINE/LIDOCAINE VIAL (OR) 0.2 ML EYE-OP (09:51)
[2020-01-23] MEDS: MOXIFLOXACIN INJ 5 MG/ML VIAL EYE-OP (09:51)
[2020-01-23] MEDS: BALANCED SALT IRRIG SOLN NO.2 500 ML, EPINEPHrine 1 MG IRR (09:52)
[2020-01-23] MEDS: TRIAMCINOLONE 50 MG/5 ML VIAL INJ (09:52)
[2020-01-23] MEDS: TETRACAINE 0.5% OPHTH DROPS 4 ML 2 DROPS EYE-OP (09:52)
[2020-01-23 10:06] VITALS: BP 121/62; PULSE 55; RESP 16; TEMP 36.2; O2SAT 96
== END 2020-01-23 10:21 | disposition home or self-care (01) ==
PROVIDERS: Family Provider Student in an Organized Health Care Education/Training Program; PCP Student in an Organized Health Care Education/Training Program; Referring Provider Ophthalmology; Visit Provider Ophthalmology
PROC: (CPT 66984; principal; 2020-01-23 09:45)
DX: H25.12 Age-related nuclear cataract, left eye (principal); F41.9 Anxiety disorder, unspecified; K21.9 Gastro-esophageal reflux disease without esophagitis; I51.9 Heart disease, unspecified; G47.33 Obstructive sleep apnea (adult) (pediatric)
CPT/HCPCS: 66984; J0171; J2250; J3301

== ENCOUNTER → 2020-04-01 08:22 | Outpatient (CLI) | payer MEDICARE, SELFPAY ==
[2020-04-01 12:22] LABS: COVID19 -Nasal RAPID Negative (Negative)
== END ==
PROVIDERS: Physician Assistant; Family Provider Student in an Organized Health Care Education/Training Program; PCP Student in an Organized Health Care Education/Training Program; Visit Provider Family Medicine Sleep Medicine
DX: Z11.59 Encounter for screening for other viral diseases (principal)
CPT/HCPCS: 87635

== ENCOUNTER → 2020-04-30 15:09 | Outpatient (CLI) | payer MEDICARE, SELFPAY ==
[2020-04-30 16:34] LABS: BUN Creatinine Ratio 27.4 (6-22); Blood Urea Nitrogen 26 mg/dL (9-20); Calcium 9.2 mg/dL (8.4-10.2); Carbon Dioxide 32 mmol/L (22-32); Chloride 104 mmol/L (98-107); Estimated Glomerular Filt Rate > 60.0 mL/min (>60); Glucose 101 mg/dL (80-110); HEMOLYSIS < 15 (0-50); Potassium 4.5 mmol/L (3.4-5.1); Sodium 139 mmol/L (137-145)
== END ==
PROVIDERS: Family Provider Student in an Organized Health Care Education/Training Program; PCP Student in an Organized Health Care Education/Training Program; Referring Provider Internal Medicine Cardiovascular Disease; Visit Provider Internal Medicine Cardiovascular Disease
DX: R07.89 Other chest pain (principal)
CPT/HCPCS: 36415; 80048

== ENCOUNTER → 2020-05-01 15:38 | Outpatient (CLI) | payer MEDICARE, SELFPAY ==
--- NOTE | 2020-05-01 | DI.CT.S_ITS ---
PROCEDURE: CT ANGIO CHEST ABDOMEN PELVIS INDICATIONS: Atherosclerotic heart disease of [place] coronary TECHNIQUE: Precontrast 5 mm thick sections acquired from the lung apices to the iliac crests. After the administration of intravenous contrast, 2.5 mm thick sections again acquired from the lung apices to the iliac crests. Maximum intensity projection (MIP) oblique sagittal and coronal reformats were then acquired. For radiation dose reduction, the following was used: automated exposure control. COMPARISON: None. FINDINGS: Image quality: Excellent. AORTA: The thoracoabdominal aorta demonstrates mild diffuse calcific plaque, causing no significant stenosis. No aneurysm nor dissection. CHEST: Lungs and pleura: No acute airspace opacities. No pleural effusions or pneumothorax. Central and peripheral airways are patent and normal in caliber. Mediastinum: Heart size is enlarged. There is calcification of the coronary vasculature. No pericardial effusion. No mediastinal or hilar adenopathy by size criteria. Central pulmonary arteries are normal in size. Esophagus is normal in caliber. No hiatal hernias. Bones and chest wall: No axillary adenopathy by size criteria. Thyroid gland is within normal limits . No suspicious bony lesions. No vertebral body compression fractures. ABDOMEN: Vasculature: Celiac trunk and mesenteric arteries are patent. Renal arteries are also patent. Solid organs: Liver is normal in size and enhancement. Gallbladder is contracted . Biliary system is non dilated. Pancreas enhances normally. Spleen is normal in size and enhancement. No adrenal nodules. Both kidneys are normal in size and enhancement, without hydronephrosis. Peritoneum and bowel: No free fluid or air. Bowel loops are normal in caliber and wall thickness. Normal appendix. Nodes and vessels: No retroperitoneal or mesenteric adenopathy by size criteria. Inferior vena cava is normal in morphology. Miscellaneous: No ventral hernias. PELVIS: Genitourinary: Bladder wall thickness is normal. Miscellaneous: No inguinal hernias or adenopathy. No ventral hernias. Bones: No suspicious bony lesions. No vertebral body compression fractures. IMPRESSION: 1. Mild diffuse plaque causing mild diffuse aortic stenosis. No aneurysm, or dissection. 2. Coronary artery disease. Dictated by: Becca Shi M.D. on 05/01/2020 at 17:07 Approved by: Becca Shi M.D. on 05/01/2020 at 17:13
== END ==
PROVIDERS: Family Provider Student in an Organized Health Care Education/Training Program; PCP Student in an Organized Health Care Education/Training Program; Referring Provider Internal Medicine Cardiovascular Disease; Visit Provider Internal Medicine Cardiovascular Disease
DX: I25.118 Atherosclerotic heart disease of native coronary artery with other forms of angina pectoris (principal); R07.89 Other chest pain; I35.0 Nonrheumatic aortic (valve) stenosis
CPT/HCPCS: 71270; 74178; Q9967

== ENCOUNTER → 2020-07-05 09:34 | Outpatient (CLI) | payer MEDICARE, SELFPAY ==
[2020-07-05 11:01] LABS: C-Reactive Protein Quant < 0.5 mg/dL (<1.0)
== END ==
PROVIDERS: Family Provider Student in an Organized Health Care Education/Training Program; PCP Student in an Organized Health Care Education/Training Program; Referring Provider Internal Medicine Cardiovascular Disease; Visit Provider Internal Medicine Cardiovascular Disease
DX: I25.118 Atherosclerotic heart disease of native coronary artery with other forms of angina pectoris (principal)
CPT/HCPCS: 36415; 86140

== ENCOUNTER → 2020-07-16 11:26 | Outpatient (CLI) | payer MEDICARE, SELFPAY ==
[2020-07-17 14:34] LABS: Fecal Immunochemical Test Negative (Negative)
== END ==
PROVIDERS: Family Provider Student in an Organized Health Care Education/Training Program; PCP Student in an Organized Health Care Education/Training Program; Referring Provider Student in an Organized Health Care Education/Training Program; Visit Provider Student in an Organized Health Care Education/Training Program
DX: Z12.11 Encounter for screening for malignant neoplasm of colon (principal)
CPT/HCPCS: 82274

== ENCOUNTER → 2021-08-25 08:59 | Outpatient (CLI) | payer MEDICARE, OTHER, SELFPAY ==
[2021-08-25 10:18] LABS: COVID19 -Nasal RAPID Negative (Negative)
== END ==
PROVIDERS: Family Provider Student in an Organized Health Care Education/Training Program; PCP Student in an Organized Health Care Education/Training Program; Visit Provider Surgery
DX: Z01.812 Encounter for preprocedural laboratory examination (principal); Z20.822 Contact with and (suspected) exposure to COVID-19
CPT/HCPCS: 87635; C9803

== ENCOUNTER 2021-08-26 06:44 | Day surgery (SDC) | payer MEDICARE, OTHER, SELFPAY ==
[2021-08-20 12:29] VITALS: BMI 25.7
[2021-08-26] MEDS: LACTATED RINGERS 1,000 ML 42 ML IV (07:23)
[2021-08-26 07:28] VITALS: BMI 25.7
[2021-08-26 07:40] VITALS: BP 151/79; PULSE 58; RESP 17; TEMP 36.5; O2SAT 96
--- NOTE | 2021-08-26 07:41 | PM.HP.1 ---
History of Present Illness History of Present Illness Date Patient Seen: 08/26/21 Time Patient Seen: 07:41 Chief complaint: SDC Narrative: Paolo is an 81-year-old man with a right inguinal hernia. Please see the office note dated 07/18/2021. He has held his Plavix. Patient History Medical History (Updated 07/18/21 @ 17:56 by Jonah Brizuela MD) Arthritis Carotid artery disease Chronic back pain Hearing loss HTN (hypertension) Hyperlipidemia Melanoma (~2015) Mumps Sleep apnea Tinnitus Surgical History (Updated 08/26/21 @ 07:22 by Yasmine Gamez RN) Anesthesia H/O coronary angioplasty (~1994) History of back surgery (~1981) History of heart artery stent (04/2018) S/P CABG x 3 (1994) Family & Social History Family History Brother Age: 83 Lung disease Loud snoring Sleep apnea Diabetes mellitus Heart disease Grandfather Heart disease Alcohol abuse Grandmother Heart disease Mother Heart disease Hypertension Father No problems noted. Social History: household members spouse Tobacco & Substance use: Smoking Status Never smoker alcohol intake current alcohol intake frequency a few times a month Substance Use Type does not use Meds Home Medications and Allergies Home Medications Medication Instructions Recorded Confirmed Type aspirin 81 mg tablet,delayed 1 tab PO QPM #0 12/24/15 08/26/21 History release nitroglycerin 0.4 mg sublingual 0.4 mg SUBLINGUAL Q5-15M PRN 02/02/18 08/20/21 History tablet (Nitrostat) clopidogrel 75 mg tablet 75 mg PO DAILY 05/26/18 08/26/21 History metoprolol succinate 25 mg 25 mg PO QPM 05/26/18 08/26/21 History tablet,extended release 24 hr rosuvastatin 40 mg tablet 40 mg PO BEDTIME 01/09/20 08/26/21 History nitroglycerin 0.2 mg/hr 1 patch TRANSDERMAL DAILY 03/13/20 08/20/21 History transdermal 24 hour patch oral appliance #1 ea 07/01/20 07/18/21 Rx diltiazem HCl 120 mg 120 mg PO DAILY cap 07/09/20 08/26/21 History capsule,extended release 12 hr nystatin-triamcinolone topical applic TOPICAL 07/11/20 07/18/21 History cream fluticasone propionate 50 1 spray INTRANASAL BID 11/27/20 08/20/21 History mcg/actuation nasal spray,suspension Allergies Allergy/AdvReac Type Severity Reaction Status Date / Time amlodipine Allergy Severe Swelling Verified 08/26/21 07:16 of Lip/Tongue/Throat isosorbide Allergy Severe Swelling Verified 08/26/21 07:16 of Lip/Tongue/Throat ranolazine Allergy Severe Swelling Verified 08/26/21 07:16 of Lip/Tongue/Throat Exam Narrative Exam Narrative: Right inguinal hernia Assessment & Plan Assessment and plan (1) Right inguinal hernia: Status: Acute Plan Plan for open right inguinal hernia repair with mesh. We reviewed the risks and benefits and would like to proceed. Time Spent With Patient Critical Care time: I spent a total of [] minutes of critical care time on this patient's care today; this time is exclusive of procedural time.
[2021-08-26] MEDS: CEFAZOLIN 2 GM/20 ML SYRINGE IV (08:12)
--- NOTE | 2021-08-26 08:17 | SUR.PREOP ---
Addendum entered by Yasmine Gamez R.N. 08/26/21 08:23: Patient is also hard of hearing, required slow, loud speech, poor historian. Original Note: Patient in bathroom for extended period of time and then went back in to have a bowel movement. Delayed him getting into bed.
--- NOTE | 2021-08-26 08:24 | SUR.OPER ---
Supine on padded OR bed, head on pillow, arms secured on padded arm boards at <90 degrees abduction, legs uncrossed, safety belt at thigh, tape over blanket over lower legs. Gel pad under heels.
--- NOTE | 2021-08-26 08:30 | SUR.OPER ---
Ring left on left ring finger and taped. Left hearing aid left in a container with patient label and placed in patient belonging bag in pre op. Warm blankets to upper body during procedure.
[2021-08-26] MEDS: BUPIVACAINE 0.5% (PF) VIAL 30 ML INJ (08:44)
[2021-08-26] MEDS: LIDOCAINE 1% W/EPI 20 ML INJ (08:47)
[2021-08-26 09:20] VITALS: BP 143/76; PULSE 64; RESP 13; TEMP 36.6; O2SAT 97
[2021-08-26 09:25] VITALS: BP 139/88; RESP 12; O2SAT 97
--- NOTE | 2021-08-26 09:25 | PM.OP.1 ---
Operative Date/Time/Diagnoses Date of procedure: 08/26/21 Time of procedure: 09:25 Pre-op diagnosis: Right inguinal hernia Post-op diagnosis: other (Right direct hernia) Procedure & Clinicians Procedure: Open right inguinal hernia repair with mesh Same procedure as scheduled: Yes Surgeon: Jonah Brizuela Anesthesia Type: General Operative Notes Findings: Direct right inguinal hernia Procedure in detail: Preoperative antibiotic was administered. The patient was brought to the operating room and placed on the table in supine position general anesthesia was induced. The right groin was prepped and draped in the normal fashion and a time-out was performed. Roughly 10 mL of lidocaine with epinephrine were injected into the skin and subcutaneous adipose tissue over the right groin. A 6 cm incision was made over the right inguinal canal. Dissection was carried down through the subcutaneous adipose tissue. A bridging vein was cauterized. We exposed the external oblique aponeurosis in the direction of the fibers. Additional local was injected deep to the aponeurosis. A 15 blade scalpel was used to lizet the external oblique aponeurosis. Metzenbaum scissors were used to carefully open the aponeurosis in the direction of the fibers taking care not to injure the underlying ilioinguinal nerve which was well seen and protected. We completely exposed the inguinal canal. The cord was dissected free from the inguinal ligament and floor of the inguinal canal and the external oblique aponeurosis was dissected off of the internal oblique taking care not to injure the hypogastric nerve. We encircled the cord with a Krystle drain for retraction. There was a rather bulky direct inguinal hernia occupying most of the floor of the inguinal canal. There was no indirect hernia although there was a fair amount of fatty tissue in the cord. There was no defined cord lipoma. We then opened a Bard large plug and patch and through with a plug. The mesh was secured with multiple interrupted 3-0 Prolene sutures to the pubic tubercle and shelving edge of the inguinal ligament as well as to the conjoint tendon medially. We overlapped the tails to recreate an internal ring and secured the medial tail to the inguinal ligament with additional sutures. We injected some plain Marcaine into the fatty tissue in the inguinal canal and cord. Finally, we removed the Krystle drain and closed the external oblique fascia with a running 3-0 Vicryl suture. Skin was closed with interrupted 3-0 Vicryl dermal sutures and a running 4 Monocryl subcuticular stitch. EBL 5 mL The patient was awakened and brought to recovery room. Post-operative Condition: stable Disposition: PACU
[2021-08-26 09:30] VITALS: BP 137/78; PULSE 64; RESP 15; O2SAT 94
[2021-08-26 09:35] VITALS: BP 133/70; PULSE 61; RESP 15; O2SAT 93
[2021-08-26] MEDS: HYDROCODONE/ACET 5/325 TABLET 1 TAB PO (09:37)
[2021-08-26 09:43] VITALS: BP 137/75; PULSE 59; RESP 16; O2SAT 94
[2023-01-05 14:02] VITALS: BMI 25.7
== END 2021-08-26 10:19 | disposition home or self-care (01) ==
PROVIDERS: Family Provider Student in an Organized Health Care Education/Training Program; PCP Student in an Organized Health Care Education/Training Program; Referring Provider Surgery; Visit Provider Surgery
PROC: (CPT 49505; principal; 2021-08-26 07:45)
DX: K40.90 Unilateral inguinal hernia, without obstruction or gangrene, not specified as recurrent (principal); I25.10 Atherosclerotic heart disease of native coronary artery without angina pectoris; I10 Essential (primary) hypertension; E78.5 Hyperlipidemia, unspecified
CPT/HCPCS: 49505; J0690; J1100; J2405; J2704; J3010

== ENCOUNTER → 2021-09-30 11:30 | Outpatient (CLI) | payer MEDICARE, OTHER, SELFPAY ==
[2021-09-30 13:08] LABS: BUN Creatinine Ratio 22.4 (6-22); Blood Urea Nitrogen 19 mg/dL (9-20); Estimated Glomerular Filt Rate > 60 mL/min (>60)
== END ==
PROVIDERS: Family Provider Student in an Organized Health Care Education/Training Program; PCP Student in an Organized Health Care Education/Training Program; Referring Provider Surgery; Visit Provider Surgery
DX: R19.03 Right lower quadrant abdominal swelling, mass and lump (principal)
CPT/HCPCS: 36415; 82565; 84520

== ENCOUNTER → 2021-10-01 11:56 | Outpatient (CLI) | payer MEDICARE, OTHER, SELFPAY ==
--- NOTE | 2021-10-01 11:58 | DI.CT.S_ITS ---
PROCEDURE: CT ABDOMEN PELVIS W CON INDICATIONS: Right lower quadrant mass TECHNIQUE: After the administration of oral and IV contrast, axial sections were acquired from the lung bases to the pubic symphysis. Coronal and sagittal reformats were performed. For radiation dose reduction, the following was used: automated exposure control, adjustment of mA and/or kV according to patient size. COMPARISON: [facility], CT, CT ANGIO CHEST ABDOMEN PELVIS, 05/01/2020, 15:40. FINDINGS: Image quality: Excellent. Lung bases: There is elevation of the right hemidiaphragm. Heart: Thyroid size is normal. Mediastinal clips are partially seen. There is at least moderate coronary artery calcification. ABDOMEN: Liver: Unremarkable. Gallbladder: Unremarkable. Biliary ducts: Unremarkable. Pancreas: Unremarkable. Spleen: Unremarkable. Adrenal Glands: Unremarkable. Kidneys and Ureters: Unremarkable. Stomach and Bowel: Stomach, small bowel loops, and colon are unremarkable. A normal appendix is incidentally noted. Peritoneum: No abnormal intraperitoneal fluid. No free air. Ventral Wall: No hernia. Abdominal Nodes: No retroperitoneal or mesenteric adenopathy by size criteria. Vessels: Aorta and inferior vena cava are normal in size. Atherosclerotic calcification is noted. PELVIS: Pelvic Organs: Unremarkable. Bladder: Unremarkable. Pelvic Nodes: No enlarged lymph nodes. Miscellaneous: Right inguinal hernia repair change can be seen. Small to moderate fat containing bilateral inguinal hernias are seen. Bones: Lumbosacral postoperative change is seen, with bone grafting material. Degenerative changes are seen throughout, which are worst involving the lumbar spine. IMPRESSION: Small to moderate bilateral fat containing inguinal hernias. Prior right inguinal hernia repair. Stable elevation is noted of the right hemidiaphragm. If there is strong clinical concern for paralysis of this hemidiaphragm, please consider a dedicated fluoroscopic sniff test for further evaluation. Incidental note is made of: Mediastinal clips At least moderate coronary artery calcification Normal appendix Lumbosacral postoperative change Dictated by: Seb Patel M.D. on 10/01/2021 at 15:05 Approved by: Seb Patel M.D. on 10/01/2021 at 15:09
== END ==
PROVIDERS: Family Provider Student in an Organized Health Care Education/Training Program; PCP Student in an Organized Health Care Education/Training Program; Referring Provider Surgery; Visit Provider Surgery
DX: K40.91 Unilateral inguinal hernia, without obstruction or gangrene, recurrent (principal); K40.90 Unilateral inguinal hernia, without obstruction or gangrene, not specified as recurrent; R19.03 Right lower quadrant abdominal swelling, mass and lump; I25.10 Atherosclerotic heart disease of native coronary artery without angina pectoris
CPT/HCPCS: 74177; Q9967

== ENCOUNTER → 2021-11-24 08:52 | Outpatient (CLI) | payer MEDICARE, OTHER, SELFPAY ==
[2021-11-24 10:31] LABS: COVID19 -Nasal RAPID Negative (Negative)
== END ==
PROVIDERS: Family Provider Student in an Organized Health Care Education/Training Program; PCP Student in an Organized Health Care Education/Training Program; Visit Provider Surgery
DX: Z20.822 Contact with and (suspected) exposure to COVID-19 (principal); Z01.812 Encounter for preprocedural laboratory examination
CPT/HCPCS: 87635; C9803

== ENCOUNTER 2021-11-25 07:47 | Day surgery (SDC) | payer MEDICARE, OTHER, SELFPAY ==
[2021-11-25 08:07] VITALS: BMI 25.4
[2021-11-25 08:31] VITALS: BP 118/67; PULSE 58; RESP 22; TEMP 36.3; O2SAT 97
[2021-11-25] MEDS: LACTATED RINGERS 1,000 ML 42 ML IV (08:35)
--- NOTE | 2021-11-25 09:51 | P.HP_ITS ---
History of Present Illness History of Present Illness Date Patient Seen: 11/25/21 Time Patient Seen: 09:51 Chief complaint: Recurrent right inguinal hernia Narrative: Paolo is an 81-year-old man who underwent an open right inguinal hernia repair several months ago and noticed a recurrent bulge in the right groin. It is not particularly painful but he can feel it when he stands up. Patient History Medical History (Updated 11/25/21 @ 09:53 by Jonah Brizuela MD) Arthritis Carotid artery disease Chronic back pain Hearing loss Hernia, inguinal, right HTN (hypertension) Hyperlipidemia Melanoma (~2015) Mumps Sleep apnea Tinnitus Surgical History (Updated 08/26/21 @ 07:22 by Yasmine Gamez RN) Anesthesia H/O coronary angioplasty (~1994) History of back surgery (~1981) History of heart artery stent (04/2018) S/P CABG x 3 (1994) Family & Social History Family History Brother Age: 84 Lung disease Loud snoring Sleep apnea Diabetes mellitus Heart disease Grandfather Heart disease Alcohol abuse Grandmother Heart disease Mother Heart disease Hypertension Father No problems noted. Social History: household members spouse Tobacco & Substance use: Smoking Status Never smoker alcohol intake current alcohol intake frequency a few times a month Substance Use Type does not use Meds Home Medications and Allergies Home Medications Medication Instructions Recorded Confirmed Type nitroglycerin 0.4 mg sublingual 0.4 mg sublingual Q5-15M PRN Chest 02/02/18 11/25/21 History tablet (Nitrostat) Pain clopidogrel 75 mg tablet 75 mg PO DAILY 05/26/18 11/25/21 History metoprolol succinate 25 mg 25 mg PO QPM 05/26/18 11/25/21 History tablet,extended release 24 hr rosuvastatin 40 mg tablet 40 mg PO BEDTIME 01/09/20 11/25/21 History oral appliance #1 ea 07/01/20 09/10/21 Rx diltiazem HCl 120 mg 120 mg PO DAILY 07/09/20 11/25/21 History capsule,extended release 12 hr nystatin-triamcinolone topical applic topical 07/11/20 09/10/21 History cream Allergies Allergy/AdvReac Type Severity Reaction Status Date / Time amlodipine Allergy Severe Swelling Verified 11/25/21 07:54 of Lip/Tongue/Throat isosorbide Allergy Severe Swelling Verified 11/25/21 07:54 of Lip/Tongue/Throat ranolazine Allergy Severe Swelling Verified 11/25/21 07:54 of Lip/Tongue/Throat Exam Vital Signs (past 8 hours): - 11/25/21 08:31 Temperature 97.3 F L Pulse Rate 58 L Respiratory Rate 22 Blood Pressure 118/67 Pulse Oximetry 97 Oxygen Delivery Method Room Air Oxygen Delivery Method Room Air Resp Effort & Inspection: normal respiratory effort GI Other: Reducible right inguinal hernia Assessment & Plan Assessment and plan (1) Recurrent right inguinal hernia: Status: Acute Plan We discussed the risks and benefits of laparoscopic right possible left inguinal hernia repair with mesh. He would like to proceed. Time Spent With Patient Critical Care time: I spent a total of [] minutes of critical care time on this patient's care toda y; this time is exclusive of procedural time.
[2021-11-25] MEDS: CEFAZOLIN 2 GM/20 ML SYRINGE IV (10:22)
[2021-11-25] MEDS: LIDOCAINE 1% W/EPI 20 ML INJ (10:28)
--- NOTE | 2021-11-25 10:57 | SUR.OPER ---
Supine on padded OR bed WITH PINK PAD, head on pillow, arms padded and tucked at sides, legs uncrossed, safety belt at thigh, tape over blanket over lower legs . POSITION APPROVED BY SURGEON AND ANESTHESIA
[2021-11-25 11:37] VITALS: BP 131/78; PULSE 70; RESP 14; TEMP 36.6; O2SAT 92
--- NOTE | 2021-11-25 11:41 | PM.OP.1 ---
Operative Date/Time/Diagnoses Date of procedure: 11/25/21 Time of procedure: 11:42 Pre-op diagnosis: Recurrent right inguinal hernia Post-op diagnosis: other (Right spigelian hernia) Procedure & Clinicians Procedure: Right spigelian hernia repair Same procedure as scheduled: No Surgeon: Jonah Brizuela Anesthesia Type: General Operative Notes Procedure in detail: The patient is an 81-year-old man who had a recent open right inguinal hernia repair with mesh and felt a recurrent bulge in his right lower abdomen. This was felt to be a recurrent right inguinal hernia and he was scheduled for laparoscopic right inguinal hernia repair with mesh. The patient was brought to the operating room, placed on the table in the supine position and general anesthesia was induced. A Pierson catheter was placed. The abdomen was prepped and draped and a time-out was performed. A 1 cm supraumbilical incision was created and dissection was carried down to the fascia. The fascia was scored with cautery transversely and the inferior leaf was grasped with a Quinn clamp to elevate the abdominal wall. A Peon clamp was used to cox the peritoneum. The Romain port was placed and the abdomen was insufflated to 15 mmHg. The camera was inserted and no evidence of an injury was noted. The patient was placed in Trendelenburg. There was no evidence of a recurrent inguinal hernia however there was a small right spigelian hernia just superior to the internal ring. The fascial defect appeared to be about 1 cm. At this point we elected to make an open incision just over the defect. We dissected down through the subcutaneous adipose tissue to the external oblique fibers. The external oblique was intact and we opened the external oblique in the direction of the fibers with a 15 blade scalpel. There was some fatty tissue coming through the hernia defect in the internal oblique which was reduced. The defect was closed primarily with about 6 interrupted 0 Ethibond sutures. We looked back at the right lower quadrant with the camera and noted the defect was closed. We then injected local into the tissue around the defect and closed the external oblique with a running 2-0 Vicryl. Additional 2-0 Vicryl was used to close the subcutaneous adipose tissue and dermis in an interrupted fashion. A running 4-0 Monocryl was used to close the skin. We then closed the supraumbilical fascial defect with 2 interrupted 0 Vicryl sutures. The skin there was also closed with 4-0 Monocryl. Steri-Strips were applied. EBL: 10 mL Post-operative Condition: stable Disposition: PACU
[2021-11-25 11:42] VITALS: BP 109/64; PULSE 75; RESP 14; O2SAT 91
[2021-11-25 11:47] VITALS: BP 116/73; PULSE 74; RESP 15; O2SAT 92
[2021-11-25] MEDS: ACETAMINOPHEN 325 MG TABLET 650 MG PO (11:55)
[2021-11-25] MEDS: ONDANSETRON 4 MG/2 ML INJ IV (11:55)
[2021-11-25] MEDS: OXYCODONE IR 5 MG TABLET PO (11:56)
[2021-11-25 11:57] VITALS: BP 111/67; PULSE 74; RESP 14; O2SAT 93
[2021-11-25 12:24] VITALS: BP 121/72; PULSE 51; RESP 18; TEMP 36.4; O2SAT 92
== END 2021-11-25 12:50 | disposition home or self-care (01) ==
PROVIDERS: Family Provider Student in an Organized Health Care Education/Training Program; PCP Student in an Organized Health Care Education/Training Program; Referring Provider Surgery; Visit Provider Surgery
PROC: 0YQ54ZZ Repair Right Inguinal Region, Percutaneous Endoscopic Approach (ICD-10-PCS; CPT 49560; principal; 2021-11-25 09:15)
DX: K43.2 Incisional hernia without obstruction or gangrene (principal); I25.10 Atherosclerotic heart disease of native coronary artery without angina pectoris; I10 Essential (primary) hypertension
CPT/HCPCS: 49560; J0690; J1100; J2405; J2704; J3010

== ENCOUNTER → 2021-12-31 07:03 | Outpatient (CLI) | payer MEDICARE, OTHER, SELFPAY ==
[2021-12-31 09:06] LABS: Cholesterol 173 mg/dL (140-199); HDL Cholesterol 41 mg/dL (40-60); LDL Cholesterol Calculated 100 mg/dL (<100); Triglycerides 161 mg/dL (35-150)
== END ==
PROVIDERS: Family Provider Student in an Organized Health Care Education/Training Program; PCP Student in an Organized Health Care Education/Training Program; Referring Provider Internal Medicine Cardiovascular Disease; Visit Provider Internal Medicine Cardiovascular Disease
DX: I25.118 Atherosclerotic heart disease of native coronary artery with other forms of angina pectoris (principal)
CPT/HCPCS: 36415; 80061

== ENCOUNTER → 2022-02-19 08:08 | Outpatient (CLI) | payer MEDICARE, OTHER, SELFPAY ==
[2022-02-19 09:06] LABS: Alanine Aminotransferase 29 IU/L (<50); Albumin 3.9 g/dL (3.5-5.0); Albumin Globulin Ratio 1.4 (1.0-2.8); Alkaline Phosphatase 71 U/L (38-126); Aspartate Aminotransferase 27 IU/L (17-59); BUN Creatinine Ratio 31.9 (6-22); Bilirubin Total 0.5 mg/dL (0.2-1.3); Blood Urea Nitrogen 29 mg/dL (9-20); Calcium 8.7 mg/dL (8.4-10.2); Carbon Dioxide 26 mmol/L (22-32); Chloride 104 mmol/L (98-107); Cholesterol 194 mg/dL (140-199); Estimated Glomerular Filt Rate > 60 mL/min (>60); Globulin 2.7 g/dL (1.7-4.1); Glucose 106 mg/dL (80-110); HDL Cholesterol 40 mg/dL (40-60); HEMOLYSIS < 15 (0-50); LDL Cholesterol Calculated 122 mg/dL (<100); Potassium 4.4 mmol/L (3.4-5.1); Sodium 139 mmol/L (137-145); Total Protein 6.6 g/dL (6.3-8.2); Triglycerides 159 mg/dL (35-150)
== END ==
PROVIDERS: Family Provider Student in an Organized Health Care Education/Training Program; PCP Student in an Organized Health Care Education/Training Program; Referring Provider Nurse Practitioner; Visit Provider Nurse Practitioner
DX: I25.118 Atherosclerotic heart disease of native coronary artery with other forms of angina pectoris (principal); Z95.5 Presence of coronary angioplasty implant and graft
CPT/HCPCS: 36415; 80053; 80061

== ENCOUNTER → 2022-07-28 07:47 | Outpatient (CLI) | payer MEDICARE, OTHER, SELFPAY ==
[2022-07-28 09:03] LABS: Cholesterol 126 mg/dL (140-199); HDL Cholesterol 39 mg/dL (40-60); LDL Cholesterol Calculated 53 mg/dL (<100); Triglycerides 168 mg/dL (35-150)
[2022-07-31 05:00] LABS: Lipoprotein (a) 98.4 nmol/L (<75.0)
== END ==
PROVIDERS: Family Provider Student in an Organized Health Care Education/Training Program; PCP Student in an Organized Health Care Education/Training Program; Referring Provider Internal Medicine Cardiovascular Disease; Visit Provider Internal Medicine Cardiovascular Disease
DX: I25.10 Atherosclerotic heart disease of native coronary artery without angina pectoris (principal)
CPT/HCPCS: 36415; 80061; 83695

== ENCOUNTER 2022-08-25 08:31 | Day surgery (SDC) | payer MEDICARE, OTHER, SELFPAY ==
[2022-08-25] VITALS (9 sets, daily range): BP systolic 111–134; BP diastolic 67–78; PULSE 52–79; RESP 12–18; TEMP 36.1–36.9; O2SAT 92–98; BMI 26.1
[2022-08-25] MEDS: LACTATED RINGERS 1,000 ML 42 ML IV (09:00)
--- NOTE | 2022-08-25 09:23 | SUR.PREOP ---
Dr Brizuela notified of chronic, intermittent angina and discontinuation of plavix.
--- NOTE | 2022-08-25 09:24 | PM.PREOP ---
Pre-operative Note COVID-19 COVID-19 status: Not tested Interval Note History & Physical reviewed/Exam performed by Physician: Yes Changes to H&P: No ASA Class (for procedural sedation): III
[2022-08-25] MEDS: CEFAZOLIN 2 GM/100 ML PREMIX 100 ML IV (09:59)
--- NOTE | 2022-08-25 10:40 | SUR.OPER ---
Supine on padded with pink pad on OR bed, head on pillow, arms padded and tucked at sides, legs uncrossed, safety belt at thigh, tape over blanket over lower legs .
[2022-08-25] MEDS: EPINEPHrine 1 MG/ML SUBCUT (10:46)
[2022-08-25] MEDS: LIDOCAINE 1% W/EPI 20 ML INJ (10:50)
[2022-08-25] MEDS: BUPIVACAINE 0.5% (PF) 30 ML VIAL INJ (10:50)
--- NOTE | 2022-08-25 11:35 | P.OP_ITS ---
Operative Date/Time/Diagnoses Date of procedure: 08/25/22 Time of procedure: 11:35 Pre-op diagnosis: Recurrent right inguinal hernia Post-op diagnosis: same Procedure & Clinicians Procedure: Laparoscopic recurrent right inguinal hernia repair with mesh Same procedure as scheduled: Yes Surgeon: Jonah Brizuela Workers Compensation Analyst: Baltazar Neely Anesthesia Type: General Operative Notes Procedure in detail: The patient was given preoperative antibiotics. The patient was brought to the operating room, placed on the table in the supine position with the arms tucked and general anesthesia was induced. The abdomen was prepped and draped in the usual fashion. A time-out was performed. A 1 cm supraumbilical incision was created and dissection was carried down to the fascia. The fascia was scored transversely with cautery. A Peon clamp was used to cox the peritoneum. The Romain port was placed and the abdomen was insufflated to 15 mmHg. The camera was inserted, there was no evidence of any injury from the entry. We could see the bulging, reduced fat where the right spigelian hernia had been repaired. There was no right indirect sac. 5 mm ports were placed under direct vision in the mid left and mid right abdomen. The patient was positioned in steep Trendelenburg. We created right peritoneal flap. The peritoneum was dissected off the cord structures revealing a indirect defect. A large right Bard mesh was brought in and placed over the defect with the medial edge against Mane's ligament. We then closed the peritoneal flap with a running 3-0 barbed suture. There were 2 small rents in the inferior leaf peritoneum which were closed by tacking median umbilical ligament over the flap. We took one last look around the abdomen and saw no other abnormalities. The suture was removed and accounted for. The 5 mm ports were removed under direct vision. The abdomen was desufflated. The Romain port was removed. Additional local was injected into the fascia and the infraumbilical fascial incision was closed with 3 i nterrupted 0 Vicryl sutures. The skin incisions were closed with 4 Monocryl, Steri-Strips and Band-Aids. EBL: 10 mL Post-operative Condition: stable Disposition: PACU
[2022-08-25] MEDS: ACETAMINOPHEN 325 MG TABLET PO (11:53)
[2022-08-25] MEDS: OXYCODONE IR 5 MG TABLET PO (11:54)
== END 2022-08-25 12:45 | disposition home or self-care (01) ==
PROVIDERS: Family Provider Student in an Organized Health Care Education/Training Program; PCP Student in an Organized Health Care Education/Training Program; Referring Provider Surgery; Visit Provider Surgery
PROC: 0YQ54ZZ Repair Right Inguinal Region, Percutaneous Endoscopic Approach (ICD-10-PCS; CPT 49651; principal; 2022-08-25 09:45)
DX: K40.91 Unilateral inguinal hernia, without obstruction or gangrene, recurrent (principal)
CPT/HCPCS: 49651; J0171; J0690; J1100; J1170; J1885; J2405; J2704; J3010

== ENCOUNTER → 2022-09-30 08:48 | Outpatient (CLI) | payer MEDICARE, OTHER, SELFPAY ==
--- NOTE | 2022-09-30 08:50 | DI.RAD.S_ITS ---
PROCEDURE: XR LUMBAR SPINE MIN 4V INDICATIONS: BACK PAIN TECHNIQUE: 5 views of the lumbar spine were acquired, including bilateral oblique views. COMPARISON: [facility], CT, CT ABDOMEN PELVIS W CON, 10/01/2021, 13:20. FINDINGS: Bones: 5 nonrib-bearing vertebrae are present. There is normal bony alignment. Multilevel vertebral body osteophytes. Multilevel intervertebral disc space height loss. Lower lumbar spine facet joint hypertrophy. Heterotopic bone about the lower lumbar spine posterior elements. No vertebral body compression fractures. No suspicious bony lesions. Prior laminectomy seen on prior CT. Soft tissues: Overlying bowel gas pattern is normal. No suspicious soft tissue calcifications. Arterial vascular calcifications. Clips in the lower chest. Oblique images: No pars defects. IMPRESSION: Moderate multilevel DDD, similar to CT from last year. No compression fracture. Dictated by: Rigo Munguia M.D. on 09/30/2022 at 9:21 Approved by: Rigo Munguia M.D. on 09/30/2022 at 9:25
== END ==
PROVIDERS: Family Provider Student in an Organized Health Care Education/Training Program; PCP Student in an Organized Health Care Education/Training Program; Referring Provider Anesthesiology; Visit Provider Anesthesiology
DX: M51.37 Other intervertebral disc degeneration, lumbosacral region (principal); M54.9 Dorsalgia, unspecified
CPT/HCPCS: 72110

== ENCOUNTER → 2022-10-01 15:47 | Outpatient (CLI) | payer MEDICARE, OTHER, SELFPAY ==
--- NOTE | 2022-10-01 15:49 | DI.RAD.S_ITS ---
PROCEDURE: XR CERVICAL SPINE 4V OR 5V INDICATIONS: Neck pain TECHNIQUE: 6 views of the cervical spine acquired. COMPARISON: CR, CERVICAL SPINE 2 OR 3 VIEWS, 12/18/2016, 10:25. MR, C-SPINE WITHOUT CONTRAST, 02/04/2017, 7:37. FINDINGS: Bones: No fractures or dislocations to the C6 level. Oblique images demonstrate no bony foraminal stenoses. Diffuse degenerative disc disease, moderate at C4-C5, C5-C6 and C6-C7. Diffuse bilateral facet arthropathy, most pronounced and severe at C3-C4 and C4-C5 on the left. There is moderate foraminal stenosis at C3-C4 and C4-C5 bilaterally. Soft tissues: No prevertebral soft tissue swelling. IMPRESSION: 1. Degenerative disc and facet disease in cervical spine as described. 2. 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 Dictated by: Ale Lyons M.D. on 10/02/2022 at 8:11 Approved by: Ale Lyons M.D. on 10/02/2022 at 8:12
--- NOTE | 2022-10-01 15:49 | DI.RAD.S_ITS ---
PROCEDURE: XR HIP W PEL IF DONE TAMY MIN 4V INDICATIONS: Right inguinal pain TECHNIQUE: AP pelvis with lateral view(s) of the hip(s). COMPARISON: None. FINDINGS: Bones: No fractures or dislocations. Pelvic ring appears intact. No suspicious bony lesions. Mild osteoarthritic changes in hips and sacroiliac joints bilaterally. Soft tissues: The visualized bowel gas pattern is normal. No suspicious soft tissue calcifications. IMPRESSION: Mild osteoarthritis. Dictated by: Ale Lyons M.D. on 10/02/2022 at 8:05 Approved by: Ale Lyons M.D. on 10/02/2022 at 8:06
== END ==
PROVIDERS: Family Provider Student in an Organized Health Care Education/Training Program; PCP Student in an Organized Health Care Education/Training Program; Referring Provider Anesthesiology; Visit Provider Anesthesiology
DX: M54.2 Cervicalgia (principal); R10.31 Right lower quadrant pain; M16.0 Bilateral primary osteoarthritis of hip; M50.321 Other cervical disc degeneration at C4-C5 level; M48.02 Spinal stenosis, cervical region; M47.812 Spondylosis without myelopathy or radiculopathy, cervical region; Z68.26 Body mass index [BMI] 26.0-26.9, adult
CPT/HCPCS: 72050; 73522; 99214

== ENCOUNTER 2023-01-12 11:04 | Day surgery (SDC) | payer MEDICARE, OTHER, SELFPAY ==
[2023-01-05 15:50] VITALS: BMI 25.1
[2023-01-12] VITALS (8 sets, daily range): BP systolic 91–140; BP diastolic 51–78; PULSE 43–52; RESP 10–16; TEMP 36.1–36.6; O2SAT 95–99; BMI 25.2
--- NOTE | 2023-01-12 | PATH_ITS ---
[facility] Accession Number: [id number] No. of containers..01 Tissue . 01 Material submitted: . NERVE - NERVE . 01 Diagnosis: Nerve, Biopsies: Fragments of predominantly fibroconnective tissue with focal mild chronic inflammation. Negative for malignancy. MRV 01/18/2023 1600 Local . 01 Electronically signed: . Lluvia Noguera MD, Pathologist NPI- [id number] . 01 Gross description: . The specimen is received in formalin labeled with the patient's name, and nerve and consists of three de leon soft tissue fragments, ranging from 0.6 x 0.3 x 0.3 cm to 0.8 x 0.4 x 0.3 cm. The fragments are differentially inked and submitted intact to be cut at embedding. ([id number]) /[facility] 01/14/2023 1700 Local . 01 Pathologist provided ICD-10: R10.31 . 01 CPT . 060061 Specimen Comment: A courtesy copy of this report has been sent to [phone] Performed at: 01 [facility] [address] [place] [address], [place], [place] [id number] MD Dev Rodriguez MD Phone: [phone]
--- NOTE | 2023-01-12 11:57 | PM.PREOP ---
Pre-operative Note COVID-19 COVID-19 status: Not tested Interval Note History & Physical reviewed/Exam performed by Physician: Yes Changes to H&P: No ASA Class (for procedural sedation): III
[2023-01-12] MEDS: LACTATED RINGERS 1,000 ML 42 ML IV (11:59)
[2023-01-12] MEDS: CEFAZOLIN 2 GM/100 ML PREMIX 100 ML IV (12:40)
--- NOTE | 2023-01-12 12:59 | SUR.OPER ---
Supine on padded OR bed, head on pillow, arms secured on padded arm boards at <90 degrees abduction, legs uncrossed, safety belt at thigh, tape over blanket over lower legs.
[2023-01-12] MEDS: BUPIVACAINE 0.5% W/ EPI (PF) 30 ML VIAL INJ (13:34)
--- NOTE | 2023-01-12 13:59 | PM.OP.1 ---
Operative Date/Time/Diagnoses Date of procedure: 01/12/23 Time of procedure: 13:59 Pre-op diagnosis: Right inguinodynia Post-op diagnosis: same Procedure & Clinicians Procedure: Right groin exploration and double neurectomy Same procedure as scheduled: Yes Surgeon: Jonah Brizuela Research Biologist: Baltazar Neely Anesthesia Type: General Operative Notes Procedure in detail: The patient was marked in the preoperative area and the site of greatest pain was marked. He was then brought to the operating room and general anesthesia was induced. The right groin was prepped and draped in the usual fashion. Ancef was administered. We created a 5 cm incision through the old hernia scar. We dissected down to the fascia and opened the fascia at the external ring. We dissected the cord structures and the mesh free from the inguinal ligament. No recurrent hernia was noted. The sutures closing the tail of the mesh around the internal ring corresponded to the location where the patient had indicated his pain started. Were 2 small nerve branches entering the area where the tails of the mesh were stitched together. Is were divided sharply with Metzenbaum scissors proximal to the edge of the mesh. Additional local was injected into the stumps. We sent short segments of the divided nerves to pathology. We explored the area no other nerves were seen entering the area. We then closed the fascia with 4 interrupted 3-0 Vicryl sutures. Additional local was injected into dermis and subcutaneous adipose tissue. The skin was then closed with interrupted 3-0 Vicryl dermal sutures and a running 4-0 Monocryl subcuticular closure. EBL: 10 mL Post-operative Condition: stable Disposition: PACU
--- NOTE | 2023-01-12 15:07 | SUR.PHASEII ---
Pt is using urinal. Pt had coffee and water. Pt denies pain and nausea.
== END 2023-01-12 15:23 | disposition home or self-care (01) ==
PROVIDERS: Family Provider Student in an Organized Health Care Education/Training Program; PCP Family Medicine; Referring Provider Surgery; Visit Provider Surgery
PROC: (CPT 64772; principal; 2023-01-12 12:15)
DX: R10.31 Right lower quadrant pain (principal)
CPT/HCPCS: 64772; J0690; J1100; J2405; J2704; J3010

== ENCOUNTER → 2023-02-05 08:10 | Outpatient (CLI) | payer MEDICARE, OTHER, SELFPAY ==
[2023-02-05 08:56] LABS: Cholesterol 190 mg/dL (140-199); HDL Cholesterol 48 mg/dL (40-60); LDL Cholesterol Calculated 100 mg/dL (<100); Triglycerides 212 mg/dL (35-150)
== END ==
PROVIDERS: Family Provider Student in an Organized Health Care Education/Training Program; PCP Family Medicine; Referring Provider Internal Medicine Cardiovascular Disease; Visit Provider Internal Medicine Cardiovascular Disease
DX: I25.118 Atherosclerotic heart disease of native coronary artery with other forms of angina pectoris (principal)
CPT/HCPCS: 36415; 80061

== ENCOUNTER → 2023-06-30 14:59 | Outpatient (CLI) | payer MEDICARE, OTHER, SELFPAY ==
[2023-06-30 15:34] LABS: Add Manual Diff / Slide Review NO; Basophils Absolute Auto 100 /uL (0-100); Basophils Percent Auto 0.9 % (0-2); Eosinophils Absolute Auto 100 /uL (0-450); Eosinophils Percent Auto 0.7 % (2-4); Hematocrit 49.9 % (41-53); Hemoglobin 16.6 g/dL (13.5-17.5); Lymphocytes Absolute Auto 1700 /uL (1100-4500); Lymphocytes Percent Auto 21.8 % (25-40); Mean Corpuscular HGB Conc 33.3 % (30-36); Mean Corpuscular Hemoglobin 29.3 PG (26-34); Mean Corpuscular Volume 87.8 fL (80-100); Monocytes Absolute Auto 800 /uL (0-900); Monocytes Percent Auto 9.7 % (3-14); Neutrophils Absolute Auto 5300 /uL (1500-7000); Neutrophils Percent Auto 66.9 % (50-75); Platelet Count 180 X10^3/uL (150-400); Red Blood Cell Count 5.68 X10^6/uL (4.5-5.9); Red Cell Distribution Width 13.9 % (11.6-14.8); White Blood Cell Count 7.9 X10^3/uL (4.5-11.0)
[2023-06-30 16:40] LABS: Alanine Aminotransferase 30 IU/L (<50); Albumin 4.1 g/dL (3.5-5.0); Albumin Globulin Ratio 1.3 (1.0-2.8); Alkaline Phosphatase 63 U/L (38-126); Aspartate Aminotransferase 37 IU/L (17-59); BUN Creatinine Ratio 26.9 (6-22); Bilirubin Total 0.5 mg/dL (0.2-1.3); Blood Urea Nitrogen 25 mg/dL (9-20); Calcium 9.2 mg/dL (8.4-10.2); Carbon Dioxide 38 mmol/L (22-32); Chloride 106 mmol/L (98-107); Estimated Glomerular Filt Rate > 60 mL/min (>60); Globulin 3.2 g/dL (1.7-4.1); Glucose 97 mg/dL (80-110); HEMOLYSIS < 15 (0-50); Potassium 4.2 mmol/L (3.4-5.1); Sodium 139 mmol/L (137-145); Total Protein 7.3 g/dL (6.3-8.2)
== END ==
PROVIDERS: Family Provider Student in an Organized Health Care Education/Training Program; PCP Family Medicine; Referring Provider Family Medicine; Visit Provider Family Medicine
DX: I25.10 Atherosclerotic heart disease of native coronary artery without angina pectoris (principal); I10 Essential (primary) hypertension; E78.5 Hyperlipidemia, unspecified
CPT/HCPCS: 80053; 85025

== ENCOUNTER → 2023-07-08 06:53 | Outpatient (CLI) | payer MEDICARE, OTHER, SELFPAY ==
--- NOTE | 2023-07-08 | DI.RAD.S_ITS ---
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 COMPARISON: [facility], CR, XR CHEST 1V, 05/26/2018, 13:49. FINDINGS: Surgical changes and devices: Hilar clips. Lungs and pleura: Lungs are clear. No pleural effusions or pneumothorax. Elevation of the right hemidiaphragm. Mediastinum: Mediastinal contours are normal. Heart size is enlarged. Bones and chest wall: No suspicious bony abnormalities. Soft tissues appear unremarkable. IMPRESSION: No acute pulmonary process. Dictated by: Kathi Trujillo M.D. on 07/08/2023 at 13:48 Approved by: Kathi Trujillo M.D. on 07/08/2023 at 13:50
[2023-07-08 08:02] LABS: Cholesterol 136 mg/dL (140-199); HDL Cholesterol 46 mg/dL (40-60); LDL Cholesterol Calculated 56 mg/dL (<100); Triglycerides 171 mg/dL (35-150)
== END ==
PROVIDERS: Family Provider Student in an Organized Health Care Education/Training Program; PCP Family Medicine; Referring Provider Internal Medicine Cardiovascular Disease; Visit Provider Internal Medicine Cardiovascular Disease
DX: I25.810 Atherosclerosis of coronary artery bypass graft(s) without angina pectoris (principal)
CPT/HCPCS: 36415; 71046; 80061

== ENCOUNTER → 2023-07-30 07:56 | Outpatient (CLI) | payer MEDICARE, OTHER, SELFPAY | LOC: RESP 07:56 | PROVIDERS: Family Provider Student in an Organized Health Care Education/Training Program; PCP Family Medicine; Referring Provider Internal Medicine Cardiovascular Disease; Visit Provider Internal Medicine Cardiovascular Disease | DX: J98.6 Disorders of diaphragm (principal); Z87.891 Personal history of nicotine dependence; J98.8 Other specified respiratory disorders | CPT/HCPCS: 94060; 94726; 94729 ==

== ENCOUNTER → 2023-08-06 09:44 | Outpatient (CLI) | payer MEDICARE, OTHER, SELFPAY ==
--- NOTE | 2023-08-06 | DI.CT.S_ITS ---
PROCEDURE: CT CHEST WO CON INDICATIONS: Disorders of diaphragm TECHNIQUE: Noncontrast 5 mm thick sections acquired from the pulmonary apices to the posterior costophrenic angles. 1 mm lung window, 5 mm thick coronal and sagittal and 7 mm axial MIP reformats were then acquired. For radiation dose reduction, the following was used: automated exposure control, adjustment of mA and/or kV according to patient size. COMPARISON: [facility], CR, CHEST 1 VIEW, 09/13/2015, 14:41. [facility], CT, CT CHEST HIGH RESOLUTION, 11/16/2018, 16:08. FINDINGS: Image quality: Diagnostic. Lower Neck: No enlarged lymph nodes. Thyroid: No thyroid nodules which require sonographic follow up, per consensus guidelines. Axillae: No enlarged lymph nodes. Chest Wall: Unremarkable. Bones: Unremarkable. Lungs and Pleura: No pneumothorax or pleural effusions. No consolidation or suspicious nodules. Stable 3 millimeter solid nodule in the posterior left lower lobe compared with 2019, statistically benign (series 3, image 88). Moderate elevation of the right hemidiaphragm, stable since 2019, increased from 2016. Right basilar atelectasis. Heart: Heart size is enlarged. No pericardial effusion. Three-vessel coronary calcifications, with CABG. Thoracic Vessels: The aorta and pulmonary arteries demonstrate normal size. Mediastinum and Dory: No enlarged lymph nodes. Esophagus: No wall thickening. Tiny hiatal hernia. Upper Abdomen: Visualized upper abdomen solid organs and bowel loops appear normal. IMPRESSION: Moderate elevation the right hemidiaphragm, stable since 2019 and increased from 2016. Chronic phrenic nerve injury is a consideration. Fluoroscopic sniff test can be considered to evaluate for extent. Dictated by: Leonardo Finch M.D. on 08/06/2023 at 10:13 Approved by: Leonardo Finch M.D. on 08/06/2023 at 10:21
== END ==
LOC: CT 09:45
PROVIDERS: Family Provider Student in an Organized Health Care Education/Training Program; PCP Family Medicine; Referring Provider Internal Medicine Cardiovascular Disease; Visit Provider Internal Medicine Cardiovascular Disease
DX: J98.6 Disorders of diaphragm (principal); Z95.1 Presence of aortocoronary bypass graft; I25.10 Atherosclerotic heart disease of native coronary artery without angina pectoris
CPT/HCPCS: 71250

== ENCOUNTER → 2024-02-03 09:08 | Outpatient (CLI) | payer MEDICARE, OTHER, SELFPAY | PROVIDERS: Family Provider Student in an Organized Health Care Education/Training Program; PCP Family Medicine; Referring Provider Family Medicine; Visit Provider Family Medicine | DX: Z00.00 Encounter for general adult medical examination without abnormal findings (principal); I10 Essential (primary) hypertension; I25.10 Atherosclerotic heart disease of native coronary artery without angina pectoris; E78.5 Hyperlipidemia, unspecified; Z12.11 Encounter for screening for malignant neoplasm of colon | CPT/HCPCS: 82274 ==

== ENCOUNTER → 2024-08-18 07:13 | Outpatient (CLI) | payer MEDICARE, OTHER, SELFPAY ==
[2024-08-18 08:29] LABS: Alanine Aminotransferase 33 IU/L (<50); Albumin 4.2 g/dL (3.5-5.0); Albumin Globulin Ratio 1.8 (1.0-2.8); Alkaline Phosphatase 57 U/L (38-126); Aspartate Aminotransferase 39 IU/L (17-59); BUN Creatinine Ratio 28.6 (6-22); Bilirubin Total 0.7 mg/dL (0.2-1.3); Blood Urea Nitrogen 26 mg/dL (9-20); Carbon Dioxide 26 mmol/L (22-32); Chloride 106 mmol/L (98-107); Cholesterol 91 mg/dL (140-199); Estimated Glomerular Filt Rate > 60 mL/min (>60); Globulin 2.4 g/dL (1.7-4.1); Glucose 106 mg/dL (80-110); HDL Cholesterol 47 mg/dL (40-60); HEMOLYSIS < 15 (0-50); LDL Cholesterol Calculated 23 mg/dL (<100); Potassium 4.5 mmol/L (3.4-5.1); Sodium 139 mmol/L (137-145); Total Protein 6.6 g/dL (6.3-8.2); Triglycerides 106 mg/dL (35-150)
== END ==
PROVIDERS: PCP Family Medicine; Referring Provider Family Medicine; Visit Provider Family Medicine
DX: E78.5 Hyperlipidemia, unspecified (principal); Z00.00 Encounter for general adult medical examination without abnormal findings; I10 Essential (primary) hypertension; I48.92 Unspecified atrial flutter
CPT/HCPCS: 36415; 80053; 80061

== ENCOUNTER → 2024-12-04 11:34 | Outpatient (CLI) | payer MEDICARE, OTHER, SELFPAY ==
[2024-12-04 13:53] LABS: Blood Urea Nitrogen 22 mg/dL (9-20); Calcium 9.0 mg/dL (8.4-10.2); Carbon Dioxide 27 mmol/L (22-32); Chloride 103 mmol/L (98-107); Estimated Glomerular Filt Rate > 60 mL/min (>60); Glucose 92 mg/dL (70-99); HEMOLYSIS < 15 (0-50); Potassium 4.8 mmol/L (3.4-5.1); Sodium 139 mmol/L (137-145)
== END ==
PROVIDERS: PCP Family Medicine; Referring Provider Family Medicine; Visit Provider Family Medicine
DX: Z00.00 Encounter for general adult medical examination without abnormal findings (principal); I10 Essential (primary) hypertension; I48.92 Unspecified atrial flutter
CPT/HCPCS: 36415; 80048